=== PATIENT | male | born 1935 | race Caucasian/White ===

== ENCOUNTER 2017-04-10 16:35 | Inpatient (IN) | payer OTHER, BC ==
[~2017-04-10] VITALS: Ht 170.2 cm; Wt 128.8 kg
[2017-04-10] VITALS (7 sets, daily range): BP systolic 102–140; BP diastolic 70–86; PULSE 63–69; TEMP 36.7–36.9; O2SAT 94–98; Ht 170.2 cm; Wt 128.8 kg
[~2017-04-10 16:35] MED LIST: CHOL100010 PO; DOCU100C31 PO; FERR325T51 PO; HMLI SC; INSDGI SC; LEVO100T PO; LEVO150T9 PO; LSX40 PO; MISO200T PO; NRN/300 PO; OXYSR/10 PO; PANT40TA PO; POLY335019 PO; PROP10TA7 PO; SPIR25TA PO
[2017-04-10] MEDS ORDERED: CHOL1TAB76 PO (16:54)
[2017-04-10] MEDS ORDERED: OXYC20TA50 PO (17:01)
[2017-04-10] MEDS ORDERED: INSDGI SC (17:01)
[2017-04-10] MEDS ORDERED: FERR1TAB62 PO (17:01)
[2017-04-10] MEDS ORDERED: INSU100I SQ (17:20)
[2017-04-10 17:41] LABS: HEMATOCRIT 21.4 % (42-52); MEAN CELL VOLUME 89.9 fL (80-100); MEAN CORPUSCULAR HEMOGLOBIN 27.7 pg (25-34); MEAN CORPUSCULAR HGB CONC 30.8 g/dl (32-36); MEAN PLATELET VOLUME 10.2 fL (7.4-10.4); PLATELET COUNT 122 K/uL (130-400); RED BLOOD COUNT 2.38 M/uL (4.7-6.1); WHITE BLOOD COUNT 3.87 K/uL (4.8-10.8)
--- NOTE | 2017-04-10 17:41 | EMERGENCY ROOM VISIT NOTE ---
History Report prepared by Omar: Leidy Bazan Under the Supervision of: Dr. Alex Cabrera M.D. First contact with patient: 16:59 Chief Complaint: WEAKNESS Stated Complaint: WEAK Nursing Triage Summary: triage note: Pt reports for the past several weeks he has had increased weakness and dizziness. pt reports hx of needing blood transfusions. History of Present Illness The patient is a 82 year old male who presents to the Emergency Room with complaints of persistent generalized weakness starting about 4-5 weeks ago. He also complains of dizziness but denies any lightheadedness or syncopal episodes. As per family, the patient looked pale today. He has a history of similar symptoms occurring with anemia and blood transfusions. He also has a history of ulcers. He is on iron pills. He is not on any blood thinners. He had blood work on February 25 which showed his hemoglobin level at 9.7. His hemoglobin level in November 2016 was 10.2 and it was 11 in October 2016. He also complains of shortness of breath with exertion. He denies any fevers, chills, chest pain, blood in vomit, abdominal pain, abdominal distention, bloody stools , or any other complaints. The patient has a history of diabetes, nonalcoholic liver issues, renal insufficiency, gastric varices, thyroid issues. Source of History: patient, family, spouse/significant other Onset: 4-5 weeks ago Position: other (global) Quality: other (generalized weakness) Timing: other (persistent) Associated Symptoms: + SOB, No fevers, No chills, No chest pain, No abdominal pain Review of Systems See HPI for pertinent positives & negatives. A total of 10 systems reviewed and were otherwise negative. Past Medical & Surgical Medical Problems: (1) Anemia (2) Cirrhosis of liver not due to alcohol (3) CKD (chronic kidney disease), stage IV (4) Diabetes mellitus (5) Dyslipidemia (6) GIB (gastrointestinal bleeding) (7) HTN (hypertension) (8) Hypothyroidism (9) ITP (idiopathic thrombocytopenic purpura) (10) MGUS (monoclonal gammopathy of unknown significance) (11) APOLINAR on CPAP (12) PMR (polymyalgia rheumatica) (13) Polymyalgia rheumatica (14) Respiratory distress (15) SOB (shortness of breath) Surgical Problems: (1) History of appendectomy (2) History of tonsillectomy and adenoidectomy (3) History of total right hip replacement Old medical records were reviewed. Nurse's notes were reviewed and I agree with. Family History Patient reports no known family medical history. Social History Smoking Status: Never Smoker Alcohol Use: none Drug Use: none Marital Status: Housing Status: lives with family Occupation Status: retired Current/Historical Medications Scheduled Cholecalciferol (D 1999), 4,000 UNITS PO @LUNCH Ferrous Sulfate (Ferrous Sulfate), 325 MG PO BID Furosemide (Furosemide), 40 MG PO QAM Gabapentin (Neurontin), 300 MG PO QID Insulin Glargine (Lantus), 40 UNITS SC HS Insulin Lispro (Human) (Humalog), 10 UNITS SQ TID Levothyroxine Sodium (Synthroid), 100 MCG PO QAM Levothyroxine Sodium (Levothyroxine Sodium), 150 MCG PO QAM Misoprostol (Cytotec), 200 MCG PO TID Oxycodone Hcl (Oxycontin), 20 MG PO BID Pantoprazole (Protonix), 40 MG PO BID Polyethylene (Miralax), 34 GM PO DAILY Scheduled PRN Docusate Sodium (Docusate Sodium), 100 MG PO BID PRN for Constipation Oxycodone Ir (Roxicodone Ir), 5 MG PO Q6H PRN for Pain Triamcinolone (Triamcinolone Acetonide), 1 APPLN EXT BID PRN for Itching Allergies Coded Allergies: Iodinated Diagnostic Agents (Verified Adverse Reaction, Intermediate, Decreased renal function, 04/10/17) Physical Exam Vital Signs Date Time Temp Pulse Resp B/P (MAP) Pulse Ox O2 Delivery O2 Flow Rate FiO2 04/10/17 17:03 95 Room Air 04/10/17 16:43 36.7 92 20 133/84 99 Room Air Physical Exam General: Chronically ill-appearing, older male, in no acute distress. HEENT: Normal cephalic atraumatic. Pupils are equal round and reactive to light. Sclerae anicteric. Extraocular movements are intact. Oropharynx is pink with moist mucous membranes. No swelling of the mouth lips or tongue. Neck: Supple with a midline trachea. No meningeal signs or stiffness, no JVD or bruits. No Stridor. Chest: Clear to auscultation bilaterally. No wheezes or rhonchi. No increased work of breathing. Heart: regular rate and rhythm. Abdomen: Soft nontender, nondistended without rebound guarding or rigidity. Extremities: No cyanosis clubbing. No calf tenderness or assymetry. 1+ bilateral lower extremity edema which is unchanged. Spine/Back. Non tender to palpation. No CVA tenderness Rectal Exam: Brown stool, non-melanotic but guaiac positive. Skin: Good turgor without rashes. Neurologic exam: Cranial nerves two through 12 are intact. Motor and sensation are intact and symmetrical throughout. Medical Decision & Procedures ER Provider Diagnostic Interpretation: X-ray results as stated below per interpretation by me and the radiologist: CHEST ONE VIEW PORTABLE CLINICAL HISTORY: Chest pain. Weakness. COMPARISON STUDY: Chest radiograph November 19, 2015. FINDINGS: Moderate elevation of the right hemidiaphragm has slightly increased since prior exam. There is no evidence of pulmonary edema. Mild cardiomegaly is noted. Linear bibasilar opacities favor atelectasis. There is no pneumothorax. There are suspected calcified left hilar lymph nodes. IMPRESSION: 1. No acute cardiopulmonary findings. 2. Slight increase in moderate elevation of the right hemidiaphragm. 3. Bibasilar opacities suggestive of atelectasis. Electronically signed by: Jaziel Reyes M.D. 04/10/2017 5:59 PM Dictated Date/Time: 04/10/2017 5:57 PM Laboratory Results 04/10/17 17:18 Red Blood Count 2.38, Mean Corpuscular Volume 89.9, Mean Corpuscular Hemoglobin 27.7, Mean Corpuscular Hemoglobin Concent 30.8, Mean Platelet Volume 10.2, Neutrophils (%) (Auto) 58.9, Lymphocytes (%) (Auto) 24.8, Monocytes (%) (Auto) 9.6, Eosinophils (%) (Auto) 5.4, Basophils (%) (Auto) 1.0, Neutrophils # (Auto) 2.28, Lymphocytes # (Auto) 0.96, Monocytes # (Auto) 0.37, Eosinophils # (Auto) 0.21, Basophils # (Auto) 0.04 04/10/17 17:18 Test 04/10/17 17:18 04/10/17 17:26 White Blood Count 3.87 K/uL (4.8-10.8) Red Blood Count 2.38 M/uL (4.7-6.1) Hemoglobin 6.6 g/dL (14.0-18.0) Hematocrit 21.4 % (42-52) Mean Corpuscular Volume 89.9 fL (80-100) Mean Corpuscular Hemoglobin 27.7 pg (25-34) Mean Corpuscular Hemoglobin Concent 30.8 g/dl (32-36) Platelet Count 122 K/uL (130-400) Mean Platelet Volume 10.2 fL (7.4-10.4) Neutrophils (%) (Auto) 58.9 % Lymphocytes (%) (Auto) 24.8 % Monocytes (%) (Auto) 9.6 % Eosinophils (%) (Auto) 5.4 % Basophils (%) (Auto) 1.0 % Neutrophils # (Auto) 2.28 K/uL (1.4-6.5) Lymphocytes # (Auto) 0.96 K/uL (1.2-3.4) Monocytes # (Auto) 0.37 K/uL (0.11-0.59) Eosinophils # (Auto) 0.21 K/uL (0-0.5) Basophils # (Auto) 0.04 K/uL (0-0.2) RDW Standard Deviation 47.7 fL (36.4-46.3) RDW Coefficient of Variation 14.3 % (11.5-14.5) Immature Granulocyte % (Auto) 0.3 % Immature Granulocyte # (Auto) 0.01 K/uL (0.00-0.02) Anisocytosis PRESENT Prothrombin Time 11.0 SECONDS (9.0-12.0) Prothromb Time International Ratio 1.0 (0.9-1.1) Activated Partial Thromboplast Time 25.9 SECONDS (21.0-31.0) Partial Thromboplastin Ratio 1.0 Anion Gap 4.0 mmol/L (3-11) Est Creatinine Clear Calc Drug Dose 36.4 ml/min Estimated GFR () 33.4 Estimated GFR (Non- 28.9 BUN/Creatinine Ratio 11.7 (10-20) Calcium Level 7.3 mg/dl (8.5-10.1) Total Bilirubin 0.2 mg/dl (0.2-1) Direct Bilirubin 0.1 mg/dl (0-0.2) Aspartate Amino Transf (AST/SGOT) 20 U/L (15-37) Alanine Aminotransferase (ALT/SGPT) 10 U/L (12-78) Alkaline Phosphatase 68 U/L (45-117) Total Creatine Kinase 101 U/L (39-308) Creatine Kinase MB 3.1 ng/ml (0.5-3.6) Creatine Kinase MB Ratio 3.1 (0-3.0) Total Protein 6.0 gm/dl (6.4-8.2) Albumin 2.5 gm/dl (3.4-5.0) Lipase 82 U/L (73-393) Thyroid Stimulating Hormone (TSH) 1.420 uIu/ml (0.300-4.500) Bedside Troponin I < 0.030 ng/ml (0-0.045) KP-Ccu-C-Type Natriuretic Peptide 264 pg/ml (0-1800) Laboratory studies as stated above per my review. Medications Administered ECG Indication: weakness Rate (beats per minute): 72 Rhythm: normal sinus Findings: 1st degree AV block, no acute ischemic change, no ectopy Comparison ECG Date: November 19, 2015 Change: no significant change ED Course 1659: Past medical records reviewed. The patient was evaluated in room B09, and a complete history and physical examination were performed. 1741: The patient's hemoglobin level was 6. 1802: I discussed the patient's case with Dr. Asif, from [facility]. 1804: Upon reevaluation, the patient is resting comfortably. Blood consent was obtained. I discussed the results and treatment plan with the patient. He verbalized agreement of the treatment plan. The patient will be evaluated for further management. 1830: Pantoprazole Sodium 80 mg/Dextrose 120 ml @ 480 mls/hr IV 1845: Pantoprazole Sodium 40 mg/Dextrose 100 ml @ 20 mls/hr IV Medical Decision Differential diagnosis includes but is not limited to anemia, GI bleed, cardiac disease, arrhythmia, infection, thyroid disease. Blood pressure Screening: Patient was found to have an elevated blood pressure and was referred to their primary doctor for recheck and further treatment. Medication Reconciliation: I attest that I have personally reviewed the patient' s current medication list. This patient comes in as described above. He was placed in room B9. He's had increasing weakness over the last 6 weeks. He does have history of anemia and GI bleeding. He's noticed no blood in his stool. He has no abdominal pain or chest pain. He does have some shortness of breath with exertion. He looks well on exam and is non-pale appearing. IV access established and was typed and screened and multiple blood tests was obtained. EKG does not suggest acute coronary syndrome or arrhythmia. Chest x-ray does not show any acute findings. Seem blood was found to be low at 6.6. I did a rectal exam and and the stool appears normal however it was guaiac positive. Based on his symptoms, I I think that he has had a slow GI bleed. He's been hemodynamically stable appears to be compensating well with this. I did consent him for blood transfusion I ordered the first unit to be started. The patient freely consents. He does need to be admitted he was also started on IV Protonix bolus and drip. [facility] will [facility] him for these measures. Consults Time Called: 1755 Consulting Physician: Dr. Asif, from [facility] Returned Call: 1802 I discussed the patient's case with Dr. Asif, from [facility]. Impression Primary Impression: GI bleed Additional Impressions: Anemia Peptic ulcer disease Critical Care Due to the patient's weakness, GI bleed and need for IV medications and transfusion, I have personally spent greater than 30 minutes of critical care time in the direct management of this patient. This includes bedside care, interpretation of diagnostic studies, and testing, discussion with consultants, patient, and family members, and other required patient management activities. This 30 minutes is in excess of all separately billable procedures. Scribe Attestation The scribe's documentation has been prepared under my direction and personally reviewed by me in its entirety. I confirm that the note above accurately reflects all work, treatment, procedures, and medical decision making performed by me. Departure Information Dispostion Being Evaluated By Hospitalist Referrals Buddy Freitas M.D. (PCP) Patient Instructions My [facility] Problem Qualifiers
[2017-04-10 17:46] LABS: POINT OF CARE PRO-BNP 264 pg/ml (0-1800); POINT OF CARE TROPONIN I < 0.030 ng/ml (0-0.045)
[2017-04-10 17:53] LABS: BUN/CREATININE RATIO 11.7 (10-20); CALCIUM 7.3 mg/dl (8.5-10.1); CREATININE 2.1 mg/dl (0.60-1.40); POTASSIUM 4.5 mmol/L (3.5-5.1)
--- NOTE | 2017-04-10 18:00 | DIAGNOSTIC IMAGING REPORT ---
CHEST ONE VIEW PORTABLE CLINICAL HISTORY: Chest pain. Weakness. COMPARISON STUDY: Chest radiograph November 19, 2015. FINDINGS: Moderate elevation of the right hemidiaphragm has slightly increased since prior exam. There is no evidence of pulmonary edema. Mild cardiomegaly is noted. Linear bibasilar opacities favor atelectasis. There is no pneumothorax. There are suspected calcified left hilar lymph nodes. IMPRESSION: 1. No acute cardiopulmonary findings. 2. Slight increase in moderate elevation of the right hemidiaphragm. 3. Bibasilar opacities suggestive of atelectasis. Electronically signed by: Jaziel Reyes M.D. 04/10/2017 5:59 PM Dictated Date/Time: 04/10/2017 5:57 PM
[2017-04-10 18:01] LABS: ANISOCYTOSIS PRESENT; BASO ABS # 0.04 K/uL (0-0.2); COMPLETE YES; EOS % 5.4 %; IG% 0.3 %; LYMPH % 24.8 %; LYMPH ABS # 0.96 K/uL (1.2-3.4); MONO % 9.6 %; NEUT % 58.9 %
[2017-04-10 18:04] LABS: CKMB/CK RATIO 3.1 (0-3.0); THYROID STIMULATING HORMONE 1.42 uIu/ml (0.300-4.500)
[2017-04-10] MEDS ORDERED: PANTOprazole INJ 80 MG in DEXTROSE 5% 100ML IV SCH (18:30)
[2017-04-10] MEDS ORDERED: PANTOprazole INJ 40 MG in DEXTROSE 5% 100ML IV SCH (18:45)
[2017-04-10] MEDS ORDERED: TRML160 EXT (19:00)
[2017-04-10] MEDS ORDERED: ONDANSETRON INJ 2 MG/ML 2 ML VIAL IV PRN (19:00)
[2017-04-10] MEDS ORDERED: MRLP17X PO (19:00)
[2017-04-10] MEDS ORDERED: ACETAMINOPHEN 325 MG TAB PO PRN (19:00)
[2017-04-10] MEDS ORDERED: MISO200T PO (19:00)
[2017-04-10] MEDS ORDERED: OXYC1TAB3 PO (19:00)
[2017-04-10] MEDS ORDERED: GLUCAGON FOR INJ 1 MG VIAL SQ PRN (19:15)
[2017-04-10] MEDS ORDERED: GLUCOSE 40% GEL 15 GM TUBE PO PRN (19:15)
[2017-04-10] MEDS ORDERED: GLUCOSE 10 TABS/TUBE PO PRN (19:15)
[2017-04-10] MEDS ORDERED: DEXTROSE 50% 50 ML SYR IV PRN (19:15)
--- NOTE | 2017-04-10 19:21 | Progress Note ---
Progress Note Date of Service Apr 10, 2017. Progress Note Patient was seen and evaluated with AMANDA Elena. Patient comes in with c/o decreased activity tolerance, SOB- exertional, fatigue x few weeks, HB found to be 6.6 Last one 1.5 months ago around 9. No c/o melena, fresh red blood per stool. Denies any abdominal pain, fever, chills, nausea vomiting, diarrhea. FOBT +ve per ED physician EXAM Gen- AAOX3, no distress; Morbidly obese HEENT- Pallor +, pale Lungs- AEBE decreased, no wheezing Heart- S1, S2 normal Abdomen- soft, non tender, non distended, BS present Ext- right > left pedal edema, chronic ASSESSMENT/PLAN: SYMPTOMATIC ANEMIA WITH CHRONIC GI BLOOD LOSS : Has had multiple EGDs/Colonoscopys in past which shows mild GAVE, persistent gastric ulcers with bx persistently negative for malignancy, rxed with PPI BID, Carafate (couldnt tolerate), increasing dose of Misoprostol, last EGD showed resolution of his ulcer. Has been on procrit, iron with multiple transfusions. Last admission- 11/2016 -PRBCS - 2units -IV Protonix 40 mg BID -H & H monitoring DM- ISS, Accuchecks HTN Stable CKD-4 Baseline : 2.0, now near baseline DVT PROPHYLAXIS SCDS/TEDS. RE: GI bleeding DISPOSITION Admit to med-surg Discussed with daughter, by bedside.
--- NOTE | 2017-04-10 19:35 | History and Physical ---
History & Physical Date & Time of Service: Apr 10, 2017 at 19:03 Chief Complaint: WEAK Primary Care Physician: Buddy Freitas M.D. History of Present Illness Source: patient, clinic records, hospital records This is an 82 y/o male with PMH of MCHUGH cirrhosis, PUD, gastric varices, GAVE, colonic AVMs, DM 2, HTN, AAA, CKD stage IV, hypothyroidism, and other problems listed below who presents to the ED with fatigue. Patient has been hospitalized multiple times (Oct 2015 and Nov 2015) for anemia due to GIB requiring transfusions. Last EGD 08/07/[address] 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 Patient now reports 6 weeks of progressive fatigue, generalized weakness, lightheadedness with standing, dyspnea on exertion. ER labs show pt's Hg has dropped to 6.6 from 9.7 in late February 2017. ER provider's rectal exam showed brown heme positive stool. Patient denies noting any hematochezia or melena at home. Bilat LE edema slightly increased from baseline past 1 week. Denies fevers, chills, cough, dyspnea at rest, chest pain, abdominal pain, nausea, vomiting, diarrhea, constipation, urinary symptoms. Past Medical/Surgical History Medical Problems: (1) Cirrhosis of liver not due to alcohol Status: Chronic (2) CKD (chronic kidney disease), stage IV Status: Chronic (3) Diabetes mellitus Status: Chronic (4) Dyslipidemia Status: Chronic (5) HTN (hypertension) Status: Chronic (6) Hypothyroidism Status: Chronic (7) ITP (idiopathic thrombocytopenic purpura) Status: Chronic (8) MGUS (monoclonal gammopathy of unknown significance) Status: Chronic (9) APOLINAR on CPAP Status: Chronic (10) PMR (polymyalgia rheumatica) Status: Chronic (11) Polymyalgia rheumatica Status: Chronic Surgical Problems: (1) History of appendectomy Status: Chronic (2) History of tonsillectomy and adenoidectomy Status: Chronic (3) History of total right hip replacement Status: Chronic Family History Patient reports no known family medical history. Social History Smoking Status: Never Smoker Alcohol Use: none Drug Use: none Marital Status: Housing status: lives with significant other Occupational Status: retired Immunizations History of Influenza Vaccine: Yes Influenza Vaccine Date: Oct 06, 2015 History of Tetanus Vaccine?: Yes Tetanus Immunization Date: Jun 21, 2006 History of Pneumococcal: Yes Pneumococcal Date: Oct 06, 2015 History of Hepatitis B Vaccine: Unknown Multi-Drug Resistant Organisms History of MDRO: No Allergies Coded Allergies: Iodinated Diagnostic Agents (Verified Adverse Reaction, Intermediate, Decreased renal function, 04/10/17) Home Medications Scheduled Cholecalciferol (D 1999), 4,000 UNITS PO @LUNCH Ferrous Sulfate (Ferrous Sulfate), 325 MG PO BID Furosemide (Furosemide), 40 MG PO QAM Gabapentin (Neurontin), 300 MG PO QID Insulin Glargine (Lantus), 40 UNITS SC HS Insulin Lispro (Human) (Humalog), 10 UNITS SQ TID Levothyroxine Sodium (Synthroid), 100 MCG PO QAM Levothyroxine Sodium (Levothyroxine Sodium), 150 MCG PO QAM Misoprostol (Cytotec), 200 MCG PO TID Oxycodone Hcl (Oxycontin), 20 MG PO BID Pantoprazole (Protonix), 40 MG PO BID Polyethylene (Miralax), 34 GM PO DAILY Scheduled PRN Docusate Sodium (Docusate Sodium), 100 MG PO BID PRN for Constipation Oxycodone Ir (Roxicodone Ir), 5 MG PO Q6H PRN for Pain Triamcinolone (Triamcinolone Acetonide), 1 APPLN EXT BID PRN for Itching Review of Systems Ten systems reviewed and negative except as noted in HPI. Physical Exam Vital Signs Date Time Temp Pulse Resp B/P (MAP) Pulse Ox O2 Delivery O2 Flow Rate FiO2 04/10/17 18:27 68 18 163/85 95 Room Air 04/10/17 17:03 95 Room Air 04/10/17 16:43 36.7 92 20 133/84 99 Room Air General Appearance: WD/WN, + pertinent finding (pleasant alert elderly male, and daughter at bedside) Head: normocephalic, atraumatic Eyes: normal inspection, PERRL, sclerae normal ENT: pharynx normal, + pertinent finding (hard of hearing) Neck: supple, trachea midline Respiratory/Chest: lungs clear, normal breath sounds, no respiratory distress, no accessory muscle use Cardiovascular: regular rate, rhythm, no murmur Abdomen/GI: normal bowel sounds, non tender, soft Extremities/Musculoskelatal: no calf tenderness, + pertinent finding (trace pretibial edema bilat LE) Neurologic/Psych: alert, normal mood/affect, oriented x 3, + pertinent finding (grossly nonfocal) Skin: warm/dry, + pallor Diagnostics Laboratory Results Results Past 24 Hours Test 04/10/17 17:08 04/10/17 17:18 04/10/17 17:26 04/10/17 18:51 Range/Units Creatine Kinase MB Ratio 3.1 0-3.0 White Blood Count 3.87 4.8-10.8 K/uL Red Blood Count 2.38 4.7-6.1 M/uL Hemoglobin 6.6 14.0-18.0 g/dL Hematocrit 21.4 42-52 % Mean Corpuscular Volume 89.9 80-100 fL Mean Corpuscular Hemoglobin 27.7 25-34 pg Mean Corpuscular Hemoglobin Concent 30.8 32-36 g/dl Platelet Count 122 130-400 K/uL Mean Platelet Volume 10.2 7.4-10.4 fL Neutrophils (%) (Auto) 58.9 % Lymphocytes (%) (Auto) 24.8 % Monocytes (%) (Auto) 9.6 % Eosinophils (%) (Auto) 5.4 % Basophils (%) (Auto) 1.0 % Neutrophils # (Auto) 2.28 1.4-6.5 K/uL Lymphocytes # (Auto) 0.96 1.2-3.4 K/uL Monocytes # (Auto) 0.37 0.11-0.59 K/uL Eosinophils # (Auto) 0.21 0-0.5 K/uL Basophils # (Auto) 0.04 0-0.2 K/uL RDW Standard Deviation 47.7 36.4-46.3 fL RDW Coefficient of Variation 14.3 11.5-14.5 % Immature Granulocyte % (Auto) 0.3 % Immature Granulocyte # (Auto) 0.01 0.00-0.02 K/uL Anisocytosis PRESENT Prothrombin Time 11.0 9.0-12.0 SECONDS Prothromb Time International Ratio 1.0 0.9-1.1 Activated Partial Thromboplast Time 25.9 21.0-31.0 SECONDS Partial Thromboplastin Ratio 1.0 Sodium Level 142 136-145 mmol/L Potassium Level 4.5 3.5-5.1 mmol/L Chloride Level 108 98-107 mmol/L Carbon Dioxide Level 30 21-32 mmol/L Anion Gap 4.0 3-11 mmol/L Blood Urea Nitrogen 25 7-18 mg/dl Creatinine 2.10 0.60-1.40 mg/dl Est Creatinine Clear Calc Drug Dose 36.4 ml/min Estimated GFR () 33.4 Estimated GFR (Non- 28.9 BUN/Creatinine Ratio 11.7 10-20 Random Glucose 78 70-99 mg/dl Calcium Level 7.3 8.5-10.1 mg/dl Total Bilirubin 0.2 0.2-1 mg/dl Direct Bilirubin 0.1 0-0.2 mg/dl Aspartate Amino Transf (AST/SGOT) 20 15-37 U/L Alanine Aminotransferase (ALT/SGPT) 10 12-78 U/L Alkaline Phosphatase 68 45-117 U/L Total Creatine Kinase 101 39-308 U/L Creatine Kinase MB 3.1 0.5-3.6 ng/ml Total Protein 6.0 6.4-8.2 gm/dl Albumin 2.5 3.4-5.0 gm/dl Lipase 82 73-393 U/L Thyroid Stimulating Hormone (TSH) 1.420 0.300-4.500 uIu/ml Bedside Troponin I < 0.030 0-0.045 ng/ml [id number] Natriuretic Peptide 264 0-1800 pg/ml Diagnostic Radiology CHEST ONE VIEW PORTABLE CLINICAL HISTORY: Chest pain. Weakness. COMPARISON STUDY: Chest radiograph November 19, 2015. FINDINGS: Moderate elevation of the right hemidiaphragm has slightly increased since prior exam. There is no evidence of pulmonary edema. Mild cardiomegaly is noted. Linear bibasilar opacities favor atelectasis. There is no pneumothorax. There are suspected calcified left hilar lymph nodes. IMPRESSION: 1. No acute cardiopulmonary findings. 2. Slight increase in moderate elevation of the right hemidiaphragm. 3. Bibasilar opacities suggestive of atelectasis. Impression Assessment and Plan SYMPTOMATIC ANEMIA Hg 6.6; was 9.7 in late February 2017; has been treated with Procrit and iron as outpatient Likely due to slow GI bleed possibly upper; ER provider's rectal exam showed brown heme + stool History of PUD, gastric varices, GAVE, colonic AVM's, diverticulosis Last EGD 08/07/[address] 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 Hemodynamically stable IV Protonix BID, continue misoprostol Transfuse 2 units pRBC with 20 mg IV Lasix in between Recheck H/H 2 hours post-transfusion Clear liquid diet- NPO after midnight for possible EGD Consult GI- pt known to Dr. Bateman DM TYPE 2 Last A1c 4.7 on 03/01/17 Continue Lantus at reduced dose Novolog sliding scale coverage BSG AC HS CKD STAGE IV Creat is 2.1- stable from baseline 2.1-2.4 Monitor renal function Avoid nephrotoxins MCHUGH CIRRHOSIS Appears euvolemic, no overt decompensation Will give IV Lasix between transfusions and continue home Lasix dose HYPERTENSION BP is stable Monitor HYPOTHYROIDISM Continue levothyroxine MGUS Continue outpatient follow up APOLINAR Continue CPAP DVT PROPHYLAXIS SCD's CODE STATUS Full code per my discussion with the patient. States he would not want prolonged life support. DISPOSITION Admit to telemetry Follows with Dr. Freitas for primary care Patient seen in collaboration with Dr. Joycelyn Asif. Please see her addendum. VTE Prophylaxis VTE Risk Assessment Done? Y/N: Yes Risk Level: Moderate
[2017-04-10] MEDS ORDERED: DOCUSATE SODIUM 100 MG CAP PO PRN (20:00)
[2017-04-10 20:47] LABS: URINE APPEARANCE CLEAR (CLEAR); URINE BILIRUBIN NEG (NEG); URINE COLOR YELLOW; URINE NITRITE NEG (NEG); URINE SPECIFIC GRAVITY 1.015 (1.000-1.030); UROBILINOGEN NEG (NEG)
[2017-04-10 20:49] LABS: MANUAL MICROSCOPIC REQUIRED? NO; REVIEW REQ? NO
[2017-04-10] MEDS: INSULIN ASPART 100 UNITS/ML 3 ML PEN SC SCH (20:49)
[2017-04-10] MEDS ORDERED: FUROSEMIDE INJ 20 MG in SYRINGE 0 ML IV SCH (21:00)
[2017-04-10] MEDS: PANTOprazole INJ 40 MG in SYRINGE 0 ML IV SCH (21:00)
[2017-04-10] MEDS: MISOPROSTOL 200 MCG TAB PO SCH (21:09)
[2017-04-10] MEDS: FERROUS SULFATE 325 MG TAB PO SCH (21:09)
[2017-04-10] MEDS: GABAPENTIN 300 MG CAP PO SCH (21:10)
[2017-04-10] MEDS: INSULIN GLARGINE SOLOSTAR 100 UNITS/ML 3 ML PEN SC SCH (21:10)
[2017-04-10] MEDS: OXYCODONE HCL 20 MG TABCR (OXYCONTIN) PO SCH (21:14)
[2017-04-11] VITALS (13 sets, daily range): BP systolic 116–162; BP diastolic 76–97; PULSE 61–70; TEMP 36.4–36.8; O2SAT 93–97
[2017-04-11] MEDS: OXYCODONE HCL IR 5 MG TAB (IMMEDIATE RELEASE) PO PRN (03:57)
[2017-04-11 05:16] LABS: HEMATOCRIT 27.5 % (42-52); MEAN CELL VOLUME 88.1 fL (80-100); MEAN CORPUSCULAR HEMOGLOBIN 27.2 pg (25-34); MEAN CORPUSCULAR HGB CONC 30.9 g/dl (32-36); MEAN PLATELET VOLUME 11.5 fL (7.4-10.4); PLATELET COUNT 130 K/uL (130-400); RED BLOOD COUNT 3.12 M/uL (4.7-6.1); WHITE BLOOD COUNT 5.29 K/uL (4.8-10.8)
[2017-04-11 05:25] LABS: BUN/CREATININE RATIO 12.1 (10-20); CALCIUM 7.5 mg/dl (8.5-10.1); CREATININE 2.1 mg/dl (0.60-1.40); POTASSIUM 4.3 mmol/L (3.5-5.1)
[2017-04-11] MEDS: LEVOTHYROXINE 150 MCG TAB PO SCH (06:28)
[2017-04-11] MEDS: INSULIN ASPART 100 UNITS/ML 3 ML PEN SC SCH ×4 (06:28→20:47)
[2017-04-11] MEDS: LEVOTHYROXINE 100 MCG TAB PO SCH (06:28)
--- NOTE | 2017-04-11 07:53 | Gastrointestinal Consultation ---
Gastrointestinal Consultation Date of Consultation: Apr 11, 2017 Attending Physician: Usha Consulting Physician: Shreyas Reason for Consultation: anemia, heme + stools History of Present Illness Patient is a 82 year old male w/ PMH significant for cirrhosis, esophageal varices, AVMs, obesity, DM, MGUS, CKD, GAVE, anemia and history of gastric ulcer who presents through the ED for evaluation of dizziness and weakness x 4 weeks found to be anemic with a HGB of 6.6 --> 2 units --> 8.5. Rectal exam in the ED with heme + brown, formed stool. Pt was seen and evaluated this AM. at bedside. He had clear liquids this morning despite being NPO. He tells me over the past few weeks he has had progressively worsening fatigue, weakness, SOB and dizziness. He denies any overt signs of GI bleeding, however, sometimes he has black stools but he is on PO iron. He typically moves his bowels twice daily - formed stools. His last BM was yesterday morning. No black/sticky stools or BRB. Denies any nausea or vomiting. Denies any upper GI symptoms. Overall he feels tired and weak. Denies any fever, chills, chest pain, abdominal pain. EGD 08/19: There was fullness of the GE junction, although no clear esophageal varices were seen. Gastric varices were seen on retroflexion. There was marked GAVE in the antrum, with deformity and edema of the folds in the gastric antrum , and marked petechiae of the antral mucosa. The previously seen ulcer was not seen.The duodenum was normal. Continue current medication regimen of PPI and cytotec. Colon 10/13/15: The perianal and digital rectal examinations were normal. There were multiple AVMs in the ascending colon. They were large and small, without evidence of bleeding. There was a large AVM that was ablated and clipped x 3; a small AVM that was ablated and clipped x 1; a large AVM that was ablated and clipped x 3; and a small AVM that was ablated and clipped x 1. Diverticulosis in the sigmoid colon. There was no evidence of ongoing or active bleeding Past Medical/Surgical History Medical Problems: (1) Acute renal failure Status: Acute (2) GI bleed Status: Acute (3) GI bleed Status: Acute (4) Peptic ulcer disease Status: Acute (5) Rectal bleeding Status: Acute Past Medical History: cirrhosis, esophageal varices, Polymyalgia rheumatica, HTN, hyperlipidemia, CKD , AAA Past Surgical History: EGD, colonoscopy, hip replacement, tonsillectomy and appendectomy Family History Patient reports no known family medical history. Social History Smoking Status: Never Smoker Alcohol Use: none Drug Use: none Marital Status: Housing Status: lives with family Occupation Status: retired Allergies Coded Allergies: Iodinated Diagnostic Agents (Verified Adverse Reaction, Intermediate, Decreased renal function, 04/10/17) Current Medications Home Meds and Scripts Medications Dose Route/Sig Max Daily Dose Days Date Category Triamcinolone Acetonide (Triamcinolone) 60 Appln/60 Ml Lotn 1 Appln EXT BID PRN 04/10/17 Reported Miralax (Polyethylene) 17 Gm Pow 34 Gm PO DAILY 04/10/17 Reported Roxicodone Ir (Oxycodone HCl) 5 Mg Tab 5 Mg PO Q6H PRN 04/10/17 Reported Humalog (Insulin Lispro (Human)) 100 Unit/Ml Inj 10 Units SQ TID 04/10/17 Reported Oxycontin (Oxycodone Hcl) 20 Mg Tab 20 Mg PO BID 04/10/17 Reported Ferrous Sulfate 325 Mg Tab 325 Mg PO BID 04/10/17 Reported Lantus (Insulin Glargine) 100 Unit/Ml Inj 40 Units SC HS 04/10/17 Reported D 2000 (Cholecalciferol) 2,000 Unit Tab 4,000 Units PO @LUNCH 04/10/17 Reported Cytotec (Misoprostol) 200 Mcg Tab 200 Mcg PO TID 02/29/16 Reported Neurontin (Gabapentin) 300 Mg Cap 300 Mg PO QID 01/05/16 Reported Protonix (Pantoprazole Sodium) 40 Mg Tab 40 Mg PO BID 01/05/16 Reported Furosemide 40 Mg Tab 40 Mg PO QAM 01/05/16 Reported Docusate Sodium 100 Mg Cap 100 Mg PO BID PRN 01/05/16 Reported Levothyroxine Sodium 150 Mcg Tab 150 Mcg PO QAM 10/12/15 Reported Synthroid (Levothyroxine Sodium) 100 Mcg Tab 100 Mcg PO QAM 10/12/15 Reported Review of Systems Constitutional: + weakness, + fatigue, No fever, No chills ENT: No trouble swallowing, No pain on swallowing Respiratory: + shortness of breath, No cough Cardiac: No chest pain, No edema Abdomen: + GI bleeding (heme + stool, black formed stools on iron, no BM since 04/10/17), No pain, No nausea, No vomiting, No diarrhea, No constipation Endo: + fatigue Physical Exam Date Time Temp Pulse Resp B/P (MAP) Pulse Ox O2 Delivery O2 Flow Rate FiO2 04/11/17 04:00 Room Air 04/11/17 04:00 36.8 66 16 146/80 (102) 95 Room Air 04/11/17 01:55 36.8 61 14 123/82 93 04/11/17 01:12 36.7 62 16 144/81 96 04/11/17 00:45 36.8 62 16 136/84 95 04/11/17 00:15 36.8 63 14 127/82 95 04/11/17 00:00 94 Room Air 04/11/17 00:00 36.7 62 16 125/82 94 04/10/17 23:45 36.8 63 16 140/86 94 04/10/17 22:30 36.8 63 18 111/78 95 04/10/17 22:00 36.9 67 16 115/72 98 04/10/17 21:30 36.8 68 16 102/70 94 04/10/17 21:15 36.8 67 16 120/79 96 04/10/17 20:58 36.9 65 16 119/71 96 04/10/17 19:20 36.7 69 18 132/83 96 Room Air 04/10/17 19:20 36.7 69 18 132/83 (99) 96 Room Air 04/10/17 18:27 68 18 163/85 95 Room Air 04/10/17 17:03 95 Room Air 04/10/17 16:43 36.7 92 20 133/84 99 Room Air General Appearance: no apparent distress Eyes: PERRL ENT: + pertinent finding (hard of hearing) Neck: supple Respiratory/Chest: lungs clear, normal breath sounds Cardiovascular: regular rate, rhythm, no gallop, no JVD, no murmur Abdomen: normal bowel sounds, non tender, soft, no organomegaly, no pulsatile mass Neurologic/Psych: alert, normal mood/affect, oriented x 3 Skin: normal color, no jaundice Laboratory Results Last 24 Hours Test 04/10/17 17:08 04/10/17 17:18 04/10/17 17:26 04/10/17 20:23 Creatine Kinase MB Ratio 3.1 White Blood Count 3.87 K/uL Red Blood Count 2.38 M/uL Hemoglobin 6.6 g/dL Hematocrit 21.4 % Mean Corpuscular Volume 89.9 fL Mean Corpuscular Hemoglobin 27.7 pg Mean Corpuscular Hemoglobin Concent 30.8 g/dl Platelet Count 122 K/uL Mean Platelet Volume 10.2 fL Neutrophils (%) (Auto) 58.9 % Lymphocytes (%) (Auto) 24.8 % Monocytes (%) (Auto) 9.6 % Eosinophils (%) (Auto) 5.4 % Basophils (%) (Auto) 1.0 % Neutrophils # (Auto) 2.28 K/uL Lymphocytes # (Auto) 0.96 K/uL Monocytes # (Auto) 0.37 K/uL Eosinophils # (Auto) 0.21 K/uL Basophils # (Auto) 0.04 K/uL RDW Standard Deviation 47.7 fL RDW Coefficient of Variation 14.3 % Immature Granulocyte % (Auto) 0.3 % Immature Granulocyte # (Auto) 0.01 K/uL Anisocytosis PRESENT Prothrombin Time 11.0 SECONDS Prothromb Time International Ratio 1.0 Activated Partial Thromboplast Time 25.9 SECONDS Partial Thromboplastin Ratio 1.0 Sodium Level 142 mmol/L Potassium Level 4.5 mmol/L Chloride Level 108 mmol/L Carbon Dioxide Level 30 mmol/L Anion Gap 4.0 mmol/L Blood Urea Nitrogen 25 mg/dl Creatinine 2.10 mg/dl Est Creatinine Clear Calc Drug Dose 36.4 ml/min Estimated GFR () 33.4 Estimated GFR (Non- 28.9 BUN/Creatinine Ratio 11.7 Random Glucose 78 mg/dl Calcium Level 7.3 mg/dl Total Bilirubin 0.2 mg/dl Direct Bilirubin 0.1 mg/dl Aspartate Amino Transf (AST/SGOT) 20 U/L Alanine Aminotransferase (ALT/SGPT) 10 U/L Alkaline Phosphatase 68 U/L Total Creatine Kinase 101 U/L Creatine Kinase MB 3.1 ng/ml Total Protein 6.0 gm/dl Albumin 2.5 gm/dl Lipase 82 U/L Thyroid Stimulating Hormone (TSH) 1.420 uIu/ml Bedside Troponin I < 0.030 ng/ml [id number] Natriuretic Peptide 264 pg/ml Urine Color YELLOW Urine Appearance CLEAR Urine pH 7.0 Urine Specific [place] 1.015 Urine Protein NEG Urine Glucose (UA) NEG Urine Ketones NEG Urine Occult Blood NEG Urine Nitrite NEG Urine Bilirubin NEG Urine Urobilinogen NEG Urine Leukocyte Esterase MODERATE Urine WBC (Auto) 10-30 /hpf Urine RBC (Auto) 0-4 /hpf Urine Hyaline Casts (Auto) 1-5 /lpf Urine Epithelial Cells (Auto) 5-10 /lpf Urine Bacteria (Auto) 2+ Test 04/10/17 20:45 04/11/17 04:15 04/11/17 06:26 Bedside Glucose 104 mg/dl 84 mg/dl White Blood Count 5.29 K/uL Red Blood Count 3.12 M/uL Hemoglobin 8.5 g/dL Hematocrit 27.5 % Mean Corpuscular Volume 88.1 fL Mean Corpuscular Hemoglobin 27.2 pg Mean Corpuscular Hemoglobin Concent 30.9 g/dl RDW Standard Deviation 48.9 fL RDW Coefficient of Variation 15.1 % Platelet Count 130 K/uL Mean Platelet Volume 11.5 fL Sodium Level 141 mmol/L Potassium Level 4.3 mmol/L Chloride Level 106 mmol/L Carbon Dioxide Level 28 mmol/L Anion Gap 7.0 mmol/L Blood Urea Nitrogen 25 mg/dl Creatinine 2.10 mg/dl Est Creatinine Clear Calc Drug Dose 34.4 ml/min Estimated GFR () 33.4 Estimated GFR (Non- 28.9 BUN/Creatinine Ratio 12.1 Random Glucose 92 mg/dl Calcium Level 7.5 mg/dl Impression Patient is a 82 year old male with presumed cirrhosis with EGD in 2015 and Colonoscopy in 2014 with evidence of GAVE, AVMs, gastric varices and diverticula who has intermittent black, formed stool as an outpatient who presented for weakness, dizziness and SOB found to have a HGB of 6.6 dropped from 9.7 in February. Stool in ED was brown but heme + without any evidence of active acute GI bleeding. Anemia and heme + stool likely secondary to slow, chronic bleeding from AVM and GAVE. Plan Monitor stools for s/s of GI blood loss Trend H&H Transfuse as needed w/ lasix between units PPI BID Cytotec TID No NSAIDs Outpatient lasix dosing as no signs of fluid overload Clear liquids No plan for EGD/Colonoscopy at this time as there are no signs of acute GI bleeding and procedures. We will follow Mr. Onofre clinically and offer interventions if needed. I performed a history and physical examination of the patient. I have discussed the patient's case, impression and plan with Patito VELARDE. Her note reflects my findings and plan. He should have his H/H checked every 3-4 weeks to "stay ahead" of his anemia. Sudeep Pritchett MD
[2017-04-11] MEDS: FERROUS SULFATE 325 MG TAB PO SCH ×2 (07:58→20:38)
[2017-04-11] MEDS: GABAPENTIN 300 MG CAP PO SCH ×4 (07:58→20:38)
[2017-04-11] MEDS: OXYCODONE HCL 20 MG TABCR (OXYCONTIN) PO SCH ×2 (07:58→20:38)
[2017-04-11] MEDS: POLYETHYLENE (MIRALAX) 17 GM PACK PO SCH (07:59)
[2017-04-11] MEDS: MISOPROSTOL 200 MCG TAB PO SCH ×3 (07:59→20:39)
[2017-04-11] MEDS: PANTOprazole INJ 40 MG in SYRINGE 0 ML IV SCH ×2 (07:59→20:38)
[2017-04-11] MEDS: FUROSEMIDE 40 MG TAB PO SCH (07:59)
--- NOTE | 2017-04-11 08:03 | Clinical Documentation Query ---
CLINICAL DOCUMENTATION QUERY Dr. DRUMMOND, In your clinical opinion is this patient being managed for: ( x ) morbid obesity with BMI of 44.4 ( ) Other explanation of clinical findings (Please Explain) ( ) Unable to determine (Please Define) ( ) Need to Discuss ( ) Not Agree BMI: A significantly high (>40) BMI will impact the severity of illness and risk of mortality of your patient. However, the physician must document a correlating diagnosis in the medical record. Please clarify and document your clinical opinion in the progress notes and discharge summary. Terms such as "probable", "suspected", "likely", "questionable", "possible", or "still to be ruled out" are acceptable. IF IN AGREEMENT, YOU MUST DOCUMENT ABOVE DIAGNOSTIC STATEMENT IN DAILY PROGRESS NOTES AND DISCHARGE SUMMARY. This document is not part of the patient's record. Thank You, Sarah Avendano, ALYCIA [phone]
--- NOTE | 2017-04-11 12:47 | Progress Note ---
Internal Med Progress Note Date of Service: Apr 11, 2017. Provider Documentation: SUBJECTIVE: Seen and examined at bedside. Patient states weakness is better. Had BM today, denies Bloody stools, melena. Also denies any chest pain, SOB. States having burning sensation with micturition. Denies fever, chills. Family at bedside. Offers no other complaints. OBJECTIVE: Vital Signs-as noted below Physical Exam: Vitals signs as noted above General Appearance:Moderately built and nourished, no apparent distress Head: normocephalic, Atraumatic Eyes: normal inspection, EOMI, PERRL Neck: supple, Trachea midline Respiratory/Chest: Normal breath sounds, CTA Cardiovascular: S1, S2, No murmur Abdomen/GI:Soft, Non tender, Bowel sounds present, protuberant Extremities/Musculoskelatal:normal inspection, Trace edema Neurologic/Psych:AAOX3, grossly no focal neurological deficits Skin: normal color, warm Lab data as noted below. 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 Presented with Hb 6.6 S/P 2 units PRBCs Continue IV Protonix, misoprostol Transfuse PRN Monitor Hb Appreciate GI input No plan for EGD/colonoscopy Currently no active bleeding Avoid NSAIDs PPI BID UTI: Reports burning micturition H/O recurrent UTIs Urine Culture:Enterococcus Start IV ceftriaxone DM II Last A1c 4.7 on 03/01/17 Continue Lantus at reduced dose Novolog sliding scale coverage BSG AC HS CKD IV Creat is 2.1- stable from baseline 2.1-2.4 Monitor renal function Avoid nephrotoxins MCHUGH CIRRHOSIS Appears euvolemic, no overt decompensation continue home Lasix dose HYPERTENSION stable Monitor HYPOTHYROIDISM Continue levothyroxine MGUS Continue outpatient follow up APOLINAR Continue CPAP Morbid Obesity: BMI:44.4 DVT PX SCD's CODE STATUS Full code DISPOSITION Monitor in Tele Follows with Dr. Freitas for primary care Vital Signs: Date Time Temp Pulse Resp B/P (MAP) Pulse Ox O2 Delivery O2 Flow Rate FiO2 04/11/17 12:44 36.4 64 18 146/77 (100) 97 Room Air 04/11/17 12:00 97 Room Air 04/11/17 08:00 97 Room Air 04/11/17 07:54 36.5 63 18 130/77 (94) 96 Room Air 04/11/17 04:00 Room Air 04/11/17 04:00 36.8 66 16 146/80 (102) 95 Room Air 04/11/17 01:55 36.8 61 14 123/82 93 04/11/17 01:12 36.7 62 16 144/81 96 04/11/17 00:45 36.8 62 16 136/84 95 04/11/17 00:15 36.8 63 14 127/82 95 04/11/17 00:00 94 Room Air 04/11/17 00:00 36.7 62 16 125/82 94 04/10/17 23:45 36.8 63 16 140/86 94 04/10/17 22:30 36.8 63 18 111/78 95 04/10/17 22:00 36.9 67 16 115/72 98 04/10/17 21:30 36.8 68 16 102/70 94 04/10/17 21:15 36.8 67 16 120/79 96 04/10/17 20:58 36.9 65 16 119/71 96 04/10/17 19:20 36.7 69 18 132/83 96 Room Air 04/10/17 19:20 36.7 69 18 132/83 (99) 96 Room Air 04/10/17 18:27 68 18 163/85 95 Room Air 04/10/17 17:03 95 Room Air 04/10/17 16:43 36.7 92 20 133/84 99 Room Air Lab Results: Results Past 24 Hours Test 04/10/17 17:08 04/10/17 17:18 04/10/17 17:26 04/10/17 20:23 Range/Units Creatine Kinase MB Ratio 3.1 0-3.0 White Blood Count 3.87 4.8-10.8 K/uL Red Blood Count 2.38 4.7-6.1 M/uL Hemoglobin 6.6 14.0-18.0 g/dL Hematocrit 21.4 42-52 % Mean Corpuscular Volume 89.9 80-100 fL Mean Corpuscular Hemoglobin 27.7 25-34 pg Mean Corpuscular Hemoglobin Concent 30.8 32-36 g/dl Platelet Count 122 130-400 K/uL Mean Platelet Volume 10.2 7.4-10.4 fL Neutrophils (%) (Auto) 58.9 % Lymphocytes (%) (Auto) 24.8 % Monocytes (%) (Auto) 9.6 % Eosinophils (%) (Auto) 5.4 % Basophils (%) (Auto) 1.0 % Neutrophils # (Auto) 2.28 1.4-6.5 K/uL Lymphocytes # (Auto) 0.96 1.2-3.4 K/uL Monocytes # (Auto) 0.37 0.11-0.59 K/uL Eosinophils # (Auto) 0.21 0-0.5 K/uL Basophils # (Auto) 0.04 0-0.2 K/uL RDW Standard Deviation 47.7 36.4-46.3 fL RDW Coefficient of Variation 14.3 11.5-14.5 % Immature Granulocyte % (Auto) 0.3 % Immature Granulocyte # (Auto) 0.01 0.00-0.02 K/uL Anisocytosis PRESENT Prothrombin Time 11.0 9.0-12.0 SECONDS Prothromb Time International Ratio 1.0 0.9-1.1 Activated Partial Thromboplast Time 25.9 21.0-31.0 SECONDS Partial Thromboplastin Ratio 1.0 Sodium Level 142 136-145 mmol/L Potassium Level 4.5 3.5-5.1 mmol/L Chloride Level 108 98-107 mmol/L Carbon Dioxide Level 30 21-32 mmol/L Anion Gap 4.0 3-11 mmol/L Blood Urea Nitrogen 25 7-18 mg/dl Creatinine 2.10 0.60-1.40 mg/dl Est Creatinine Clear Calc Drug Dose 36.4 ml/min Estimated GFR () 33.4 Estimated GFR (Non- 28.9 BUN/Creatinine Ratio 11.7 10-20 Random Glucose 78 70-99 mg/dl Calcium Level 7.3 8.5-10.1 mg/dl Total Bilirubin 0.2 0.2-1 mg/dl Direct Bilirubin 0.1 0-0.2 mg/dl Aspartate Amino Transf (AST/SGOT) 20 15-37 U/L Alanine Aminotransferase (ALT/SGPT) 10 12-78 U/L Alkaline Phosphatase 68 45-117 U/L Total Creatine Kinase 101 39-308 U/L Creatine Kinase MB 3.1 0.5-3.6 ng/ml Total Protein 6.0 6.4-8.2 gm/dl Albumin 2.5 3.4-5.0 gm/dl Lipase 82 73-393 U/L Thyroid Stimulating Hormone (TSH) 1.420 0.300-4.500 uIu/ml Bedside Troponin I < 0.030 0-0.045 ng/ml [id number] Natriuretic Peptide 264 0-1800 pg/ml Urine Color YELLOW Urine Appearance CLEAR CLEAR Urine pH 7.0 4.5-7.5 Urine Specific [place] 1.015 1.000-1.030 Urine Protein NEG NEG Urine Glucose (UA) NEG NEG Urine Ketones NEG NEG Urine Occult Blood NEG NEG Urine Nitrite NEG NEG Urine Bilirubin NEG NEG Urine Urobilinogen NEG NEG Urine Leukocyte Esterase MODERATE NEG Urine WBC (Auto) 10-30 0-5 /hpf Urine RBC (Auto) 0-4 0-4 /hpf Urine Hyaline Casts (Auto) 1-5 0-5 /lpf Urine Epithelial Cells (Auto) 5-10 0-5 /lpf Urine Bacteria (Auto) 2+ NEG Test 04/10/17 20:45 04/11/17 04:15 04/11/17 06:26 Range/Units Bedside Glucose 104 84 70-99 mg/dl White Blood Count 5.29 4.8-10.8 K/uL Red Blood Count 3.12 4.7-6.1 M/uL Hemoglobin 8.5 14.0-18.0 g/dL Hematocrit 27.5 42-52 % Mean Corpuscular Volume 88.1 80-100 fL Mean Corpuscular Hemoglobin 27.2 25-34 pg Mean Corpuscular Hemoglobin Concent 30.9 32-36 g/dl RDW Standard Deviation 48.9 36.4-46.3 fL RDW Coefficient of Variation 15.1 11.5-14.5 % Platelet Count 130 130-400 K/uL Mean Platelet Volume 11.5 7.4-10.4 fL Sodium Level 141 136-145 mmol/L Potassium Level 4.3 3.5-5.1 mmol/L Chloride Level 106 98-107 mmol/L Carbon Dioxide Level 28 21-32 mmol/L Anion Gap 7.0 3-11 mmol/L Blood Urea Nitrogen 25 7-18 mg/dl Creatinine 2.10 0.60-1.40 mg/dl Est Creatinine Clear Calc Drug Dose 34.4 ml/min Estimated GFR () 33.4 Estimated GFR (Non- 28.9 BUN/Creatinine Ratio 12.1 10-20 Random Glucose 92 70-99 mg/dl Calcium Level 7.5 8.5-10.1 mg/dl Microbiology Results 04/10/17 Urine Culture - Preliminary, Resulted Enterococcus Species
[2017-04-11] MEDS: CHOLECALCIFEROL 1000 INTER.UNIT TAB PO SCH (13:06)
[2017-04-11] MEDS ORDERED: CEFTRIAXONE SOD INJ 1 GM in DEXTROSE 5% ADD-VANTAGE 50ML 50 ML IV SCH (13:30)
--- NOTE | 2017-04-11 15:16 | Progress Note ---
Progress Note Date of Service Apr 11, 2017. (Patito Stewart ., PRACHI) Progress Note Will keep NPO after midnight in event EGD is needed 04/12/17. (Patito Stewart ., PRACHI)
[2017-04-11 20:16] LABS: HEMATOCRIT 26.6 % (42-52)
[2017-04-11] MEDS: INSULIN GLARGINE SOLOSTAR 100 UNITS/ML 3 ML PEN SC SCH (20:47)
[2017-04-12] VITALS (10 sets, daily range): BP systolic 106–167; BP diastolic 67–95; PULSE 61–77; TEMP 36.3–36.7; O2SAT 95–99
[2017-04-12] MEDS: LEVOTHYROXINE 100 MCG TAB PO SCH (06:14)
[2017-04-12] MEDS: LEVOTHYROXINE 150 MCG TAB PO SCH (06:14)
[2017-04-12 07:03] LABS: BUN/CREATININE RATIO 11.3 (10-20); CALCIUM 7.4 mg/dl (8.5-10.1); CREATININE 2.1 mg/dl (0.60-1.40); POTASSIUM 4.1 mmol/L (3.5-5.1)
[2017-04-12 07:05] LABS: HEMATOCRIT 26.4 % (42-52); MEAN CELL VOLUME 87.1 fL (80-100); MEAN CORPUSCULAR HEMOGLOBIN 26.7 pg (25-34); MEAN CORPUSCULAR HGB CONC 30.7 g/dl (32-36); RED BLOOD COUNT 3.03 M/uL (4.7-6.1); WHITE BLOOD COUNT 4.72 K/uL (4.8-10.8)
[2017-04-12 07:30] LABS: BASO % 0.8 %; BASO ABS # 0.04 K/uL (0-0.2); COMPLETE YES; EOS % 7.4 %; IG% 0.2 %; LYMPH % 20.1 %; LYMPH ABS # 0.95 K/uL (1.2-3.4); MEAN PLATELET VOLUME 11.4 fL (7.4-10.4); MONO % 14.2 %; NEUT % 57.3 %; OVALOCYTES 1+; PLATELET COUNT 96 K/uL (130-400); PLT ESTIMATE DECREASED
[2017-04-12] MEDS: INSULIN ASPART 100 UNITS/ML 3 ML PEN SC SCH ×4 (07:33→21:00)
[2017-04-12] MEDS: PANTOprazole INJ 40 MG in SYRINGE 0 ML IV SCH ×2 (07:34→21:02)
--- NOTE | 2017-04-12 08:21 | Gastroenterology Progress Note ---
Progress Note Date of Service: Apr 12, 2017 Subjective Pt evaluation today including: conversation w/ patient, physical exam, chart review Pt was seen and examined this AM. He is not agreeable to an EGD as he is not having any black/bloody stools or upper GI symptoms. HGB this AM 8.1. Denies fever, chills, chest pain, SOB, lightheadedness or dizziness. Review of Systems Constitutional: No fever, No chills Respiratory: No cough, No shortness of breath Cardiac: No chest pain, No edema Abdomen: No pain, No nausea, No vomiting, No diarrhea, No constipation, No GI bleeding Medications Current Inpatient Medications Medications (Trade) Dose Ordered Sig/Hany Route Start Time Stop Time Status Last Admin Dose Admin Acetaminophen (Tylenol Tab) 650 mg Q4H PRN PO 04/10/17 19:00 05/10/17 18:59 Ondansetron HCl (Zofran Inj) 4 mg Q6H PRN IV 04/10/17 19:00 05/10/17 18:59 Pantoprazole Sodium 40 mg/ Syringe 10 ml @ 5 mls/min DAILY@ IV 04/10/17 21:00 05/10/17 20:59 04/12/17 07:34 5 MLS/MIN Docusate Sodium (coLACE CAP) 100 mg BID PRN PO 04/10/17 20:00 05/10/17 19:59 Furosemide (Lasix Tab) 40 mg QAM PO 04/11/17 09:00 05/11/17 08:59 04/11/17 07:59 40 MG Gabapentin (Neurontin Cap) 300 mg QID PO 04/10/17 21:00 05/10/17 20:59 04/11/17 20:38 300 MG Insulin Glargine (Lantus Solostar Pen) 20 unit HS SC 04/10/17 21:00 05/10/17 20:59 04/11/17 20:47 20 UNIT Levothyroxine Sodium (Synthroid Tab) 150 mcg DAILYBB PO 04/11/17 06:00 05/11/17 05:59 04/12/17 06:14 150 MCG Levothyroxine Sodium (Synthroid Tab) 100 mcg DAILYBB PO 04/11/17 06:00 05/11/17 05:59 04/12/17 06:14 100 MCG Misoprostol (Cytotec Tab) 200 mcg TID PO 04/10/17 21:00 05/10/17 20:59 04/11/17 20:39 200 MCG Oxycodone HCl (Oxycontin Tab) 20 mg BID PO 04/10/17 21:00 04/24/17 20:59 04/11/17 20:38 20 MG Oxycodone HCl (Roxicodone Immediate Rel Tab) 5 mg Q6H PRN PO 04/10/17 19:00 04/24/17 18:59 04/11/17 03:57 5 MG Polyethylene (Miralax Powder Packet) 34 gm DAILY PO 04/11/17 09:00 05/11/17 08:59 Cholecalciferol (Vitamin D Tab) 4,000 inter.unit QDL PO 04/11/17 11:30 05/11/17 11:29 04/11/17 13:06 4,000 INTER.UNIT Ferrous Sulfate (Feosol Tab) 325 mg BID PO 04/10/17 21:00 05/10/17 20:59 04/11/17 20:38 325 MG Miscellaneous Information (Order Awaiting Action) 1 ea QS N/A 04/11/17 00:00 05/11/17 00:00 04/11/17 00:16 1 EA Insulin Aspart (novoLOG ASPART) SLIDING SCALE If C... ACHS SC 04/10/17 21:00 05/10/17 20:59 04/11/17 17:09 2 UNITS Glucose (Glucose 40% Gel) 15-30 GRAMS 15 GRAMS... UD PRN PO 04/10/17 19:15 05/10/17 19:14 Glucose (Glucose Chew Tab) 4-8 Tablets 4 Tabl... UD PRN PO 04/10/17 19:15 05/10/17 19:14 Dextrose (Dextrose 50% 50ML Syringe) 25-50ML OF 50% DW IV FOR... UD PRN IV 04/10/17 19:15 05/10/17 19:14 Glucagon (Glucagon Inj) 1 mg UD PRN SQ 04/10/17 19:15 05/10/17 19:14 Ceftriaxone Sodium 1 gm/ Dextrose 50 ml @ 100 mls/hr Q24H IV 04/11/17 13:30 04/21/17 13:29 04/11/17 14:06 100 MLS/HR Objective Vital Signs Date Time Temp Pulse Resp B/P (MAP) Pulse Ox O2 Delivery O2 Flow Rate FiO2 04/12/17 07:46 36.6 67 20 143/88 (106) 97 Room Air 04/12/17 04:15 36.7 61 18 143/87 (105) 99 Room Air 04/12/17 04:00 99 Room Air 04/12/17 00:00 95 Room Air 04/11/17 23:55 36.8 70 18 162/97 (118) 95 Room Air 04/11/17 20:01 36.6 66 18 148/83 (104) 97 Room Air 04/11/17 20:00 Room Air 04/11/17 16:00 Room Air 04/11/17 15:30 36.6 61 18 116/76 (89) 96 Room Air 04/11/17 12:44 36.4 64 18 146/77 (100) 97 Room Air 04/11/17 12:00 97 Room Air Physical Exam General Appearance: no apparent distress Eyes: PERRL ENT: TMs normal Neck: supple Respiratory/Chest: lungs clear Cardiovascular: regular rate, rhythm Abdomen: normal bowel sounds, non tender, soft, no organomegaly Neurologic/Psych: alert, normal mood/affect, oriented x 3 Skin: normal color Laboratory Results Last 24 Hours Test 04/11/17 11:36 04/11/17 16:45 04/11/17 20:10 04/11/17 20:41 Bedside Glucose 145 mg/dl 86 mg/dl 117 mg/dl Hemoglobin 8.3 g/dL Hematocrit 26.6 % Test 04/12/17 06:14 04/12/17 06:52 White Blood Count 4.72 K/uL Red Blood Count 3.03 M/uL Hemoglobin 8.1 g/dL Hematocrit 26.4 % Mean Corpuscular Volume 87.1 fL Mean Corpuscular Hemoglobin 26.7 pg Mean Corpuscular Hemoglobin Concent 30.7 g/dl Platelet Count 96 K/uL Mean Platelet Volume 11.4 fL Neutrophils (%) (Auto) 57.3 % Lymphocytes (%) (Auto) 20.1 % Monocytes (%) (Auto) 14.2 % Eosinophils (%) (Auto) 7.4 % Basophils (%) (Auto) 0.8 % Neutrophils # (Auto) 2.70 K/uL Lymphocytes # (Auto) 0.95 K/uL Monocytes # (Auto) 0.67 K/uL Eosinophils # (Auto) 0.35 K/uL Basophils # (Auto) 0.04 K/uL RDW Standard Deviation 48.0 fL RDW Coefficient of Variation 14.9 % Immature Granulocyte % (Auto) 0.2 % Immature Granulocyte # (Auto) 0.01 K/uL Platelet Estimate DECREASED Ovalocytes 1+ Sodium Level 141 mmol/L Potassium Level 4.1 mmol/L Chloride Level 105 mmol/L Carbon Dioxide Level 28 mmol/L Anion Gap 8.0 mmol/L Blood Urea Nitrogen 24 mg/dl Creatinine 2.10 mg/dl Est Creatinine Clear Calc Drug Dose 36.2 ml/min Estimated GFR () 33.4 Estimated GFR (Non- 28.9 BUN/Creatinine Ratio 11.3 Random Glucose 94 mg/dl Calcium Level 7.4 mg/dl Bedside Glucose 105 mg/dl Assessment and Plan Patient is a 82 year old male with presumed cirrhosis with EGD in 2015 and Colonoscopy in 2014 with evidence of GAVE, AVMs, gastric varices and diverticula who has intermittent black, formed stool as an outpatient who presented for weakness, dizziness and SOB found to have a HGB of 6.6 dropped from 9.7 in February. Stool in ED was brown but heme + without any evidence of active acute GI bleeding. Anemia and heme + stool likely secondary to slow, chronic bleeding from AVM and GAVE. Monitor stools for s/s of GI blood loss Trend H&H Transfuse as needed w/ lasix between units PPI BID Cytotec TID No NSAIDs Outpatient lasix dosing as no signs of fluid overload No plan for inpatient EGD/Colonoscopy at this time as there are no signs of acute GI bleeding and procedures. I have seen, examined and agree with the plan as outlined by PRACHI Ho as above. -exam reveals soft abd -Discussed and encouraged EGD, but patient denied -Follow symptoms, if has mikaela bleeding re-consider EGD
--- NOTE | 2017-04-12 09:12 | Progress Note ---
Internal Med Progress Note Date of Service: Apr 12, 2017. Provider Documentation: SUBJECTIVE: Seen and examined at bedside. States feeling well. Denies black/bloody stools. Also denies any chest pain, SOB, fever, chills. OBJECTIVE: Vital Signs-as noted below Physical Exam: Vitals signs as noted above General Appearance:Moderately built and nourished, no apparent distress Head: normocephalic, Atraumatic Eyes: normal inspection, EOMI, PERRL Neck: supple, Trachea midline Respiratory/Chest: Normal breath sounds, CTA Cardiovascular: S1, S2, No murmur Abdomen/GI:Soft, Non tender, Bowel sounds present, protuberant Extremities/Musculoskelatal:normal inspection, Trace edema Neurologic/Psych:AAOX3, grossly no focal neurological deficits Skin: normal color, warm Lab data as noted below. 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 Presented with Hb 6.6 S/P 2 units PRBCs Hb:8.1 today Continue IV Protonix BID, misoprostol Transfuse PRN Monitor Hb Appreciate GI input No plan for EGD/colonoscopy Currently no active bleeding Avoid NSAIDs UTI: Reports burning micturition H/O recurrent UTIs Urine Culture:Enterococcus Will change to Vancomycin based on previous sensitivities DM II Last A1c 4.7 on 03/01/17 Continue Lantus at reduced dose Novolog sliding scale coverage BSG AC HS CKD IV Cr Stable: baseline 2.1-2.4 Monitor renal function Avoid nephrotoxins MCHUGH CIRRHOSIS Appears euvolemic, no overt decompensation continue home Lasix dose HYPERTENSION stable Monitor HYPOTHYROIDISM Continue levothyroxine MGUS Continue outpatient follow up APOLINAR Continue CPAP Morbid Obesity: BMI:44.4 DVT PX SCD's CODE STATUS Full code DISPOSITION Transfer to medical floor Follows with Dr. Freitas for primary care Vital Signs: Date Time Temp Pulse Resp B/P (MAP) Pulse Ox O2 Delivery O2 Flow Rate FiO2 04/12/17 08:00 98 Room Air 04/12/17 07:46 36.6 67 20 143/88 (106) 97 Room Air 04/12/17 04:15 36.7 61 18 143/87 (105) 99 Room Air 04/12/17 04:00 99 Room Air 04/12/17 00:00 95 Room Air 04/11/17 23:55 36.8 70 18 162/97 (118) 95 Room Air 04/11/17 20:01 36.6 66 18 148/83 (104) 97 Room Air 04/11/17 20:00 Room Air 04/11/17 16:00 Room Air 04/11/17 15:30 36.6 61 18 116/76 (89) 96 Room Air 04/11/17 12:44 36.4 64 18 146/77 (100) 97 Room Air 04/11/17 12:00 97 Room Air Lab Results: Results Past 24 Hours Test 04/11/17 11:36 04/11/17 16:45 04/11/17 20:10 04/11/17 20:41 Range/Units Bedside Glucose 145 86 117 70-99 mg/dl Hemoglobin 8.3 14.0-18.0 g/dL Hematocrit 26.6 42-52 % Test 04/12/17 06:14 04/12/17 06:52 Range/Units White Blood Count 4.72 4.8-10.8 K/uL Red Blood Count 3.03 4.7-6.1 M/uL Hemoglobin 8.1 14.0-18.0 g/dL Hematocrit 26.4 42-52 % Mean Corpuscular Volume 87.1 80-100 fL Mean Corpuscular Hemoglobin 26.7 25-34 pg Mean Corpuscular Hemoglobin Concent 30.7 32-36 g/dl Platelet Count 96 130-400 K/uL Mean Platelet Volume 11.4 7.4-10.4 fL Neutrophils (%) (Auto) 57.3 % Lymphocytes (%) (Auto) 20.1 % Monocytes (%) (Auto) 14.2 % Eosinophils (%) (Auto) 7.4 % Basophils (%) (Auto) 0.8 % Neutrophils # (Auto) 2.70 1.4-6.5 K/uL Lymphocytes # (Auto) 0.95 1.2-3.4 K/uL Monocytes # (Auto) 0.67 0.11-0.59 K/uL Eosinophils # (Auto) 0.35 0-0.5 K/uL Basophils # (Auto) 0.04 0-0.2 K/uL RDW Standard Deviation 48.0 36.4-46.3 fL RDW Coefficient of Variation 14.9 11.5-14.5 % Immature Granulocyte % (Auto) 0.2 % Immature Granulocyte # (Auto) 0.01 0.00-0.02 K/uL Platelet Estimate DECREASED Ovalocytes 1+ Sodium Level 141 136-145 mmol/L Potassium Level 4.1 3.5-5.1 mmol/L Chloride Level 105 98-107 mmol/L Carbon Dioxide Level 28 21-32 mmol/L Anion Gap 8.0 3-11 mmol/L Blood Urea Nitrogen 24 7-18 mg/dl Creatinine 2.10 0.60-1.40 mg/dl Est Creatinine Clear Calc Drug Dose 36.2 ml/min Estimated GFR () 33.4 Estimated GFR (Non- 28.9 BUN/Creatinine Ratio 11.3 10-20 Random Glucose 94 70-99 mg/dl Calcium Level 7.4 8.5-10.1 mg/dl Bedside Glucose 105 70-99 mg/dl
[2017-04-12] MEDS: FERROUS SULFATE 325 MG TAB PO SCH ×2 (09:30→21:02)
[2017-04-12] MEDS: GABAPENTIN 300 MG CAP PO SCH ×4 (09:30→21:02)
[2017-04-12] MEDS: POLYETHYLENE (MIRALAX) 17 GM PACK PO SCH (09:30)
[2017-04-12] MEDS: FUROSEMIDE 40 MG TAB PO SCH (09:30)
[2017-04-12] MEDS: OXYCODONE HCL 20 MG TABCR (OXYCONTIN) PO SCH ×2 (09:30→21:20)
[2017-04-12] MEDS: MISOPROSTOL 200 MCG TAB PO SCH ×3 (09:30→21:03)
[2017-04-12] MEDS ORDERED: VANCOMYCIN CONSULT ACTIVE PRN (10:30)
[2017-04-12] MEDS ORDERED: VANCOMYCIN INJ 2,700 MG in SODIUM CHLORIDE 0.9% 500ML 500 ML IV ONE (11:00)
[2017-04-12] MEDS: CHOLECALCIFEROL 1000 INTER.UNIT TAB PO SCH (11:28)
--- NOTE | 2017-04-12 13:02 | Pharmacy Progress Note ---
Pharmacy Abx Initial Consult Date of Service Apr 12, 2017. Pharmacy Dosing Scope Date of Consult: 04/12/17 Consultation requested by: Dr. Kerr Pharmacy is consulted to initiate Vancomycin IV dosing therapy, order appropriate labs and adjust drug dose/frequency. Subjective The patient is a 82 year old male admitted on Apr 10, 2017 at 18:08. Objective Height (Feet): 5 Height (Inches): 7.00 Weight (Kilograms): 128.800 Vital Signs (Past 12Hrs) Vital Signs Past 12 Hours Date Time Temp Pulse Resp B/P (MAP) Pulse Ox O2 Delivery O2 Flow Rate FiO2 04/12/17 10:45 36.7 77 20 167/95 (119) 95 Room Air 04/12/17 10:26 36.6 67 20 98 04/12/17 08:00 98 Room Air 04/12/17 07:46 36.6 67 20 143/88 (106) 97 Room Air 04/12/17 04:15 36.7 61 18 143/87 (105) 99 Room Air 04/12/17 04:00 99 Room Air Lab Results (24Hrs) Laboratory Tests (24 Hours) Test 04/12/17 06:14 White Blood Count 4.72 K/uL (4.8-10.8) L Red Blood Count 3.03 M/uL (4.7-6.1) L Hemoglobin 8.1 g/dL (14.0-18.0) L Hematocrit 26.4 % (42-52) L Mean Corpuscular Volume 87.1 fL (80-100) Mean Corpuscular Hemoglobin 26.7 pg (25-34) Mean Corpuscular Hemoglobin Concent 30.7 g/dl (32-36) L Platelet Count 96 K/uL (130-400) L Mean Platelet Volume 11.4 fL (7.4-10.4) H Neutrophils (%) (Auto) 57.3 % Lymphocytes (%) (Auto) 20.1 % Monocytes (%) (Auto) 14.2 % Eosinophils (%) (Auto) 7.4 % Basophils (%) (Auto) 0.8 % Neutrophils # (Auto) 2.70 K/uL (1.4-6.5) Lymphocytes # (Auto) 0.95 K/uL (1.2-3.4) L Monocytes # (Auto) 0.67 K/uL (0.11-0.59) H Eosinophils # (Auto) 0.35 K/uL (0-0.5) Basophils # (Auto) 0.04 K/uL (0-0.2) Micro Results Date/Time Source Procedure Growth Status 04/10/17 20:23 Urine , Clean Catch Urine Culture - Final Enterococcus Faecalis Complete Risk Factors for Resistance * History of recurrent UTIs * Antimicrobial use within the last 90 days - patient on amoxicillin PO x 10 days in March 2017 Assessment & Plan Assessment 82 year old male admitted with anemia and symptomatic UTI. Patient was initiated on ceftriaxone IV therapy. This was changed to Vancomycin IV on 04/12 due to preliminary urine culture growing Enterococcus. * h/o of E.faecalis UTI (sensitive to amp, vanc, macrobid, dapto) Plan Vancomycin IV for treatment of Enterococcus UTI Vancomycin IV * Loading dose: 2700 mg (21 mg/kg) * Patient has multiple RF for accumulation of Vancomycin (age, BMI, h/o CKD IV) , therefore, I am hesitant to start patient on a maintenance dose utilizing population based pharmacokinetics. Further dosing will be based on random level. * Goal trough level for UTI :~15 mcg/mL * Random level ordered for 04/13/17 Pharmacy will continue to follow and will adjust dose/frequency as necessary. Thank you.
[2017-04-12 21:05] LABS: HEMATOCRIT 27.6 % (42-52)
[2017-04-12] MEDS: INSULIN GLARGINE SOLOSTAR 100 UNITS/ML 3 ML PEN SC SCH (21:16)
[2017-04-13] MEDS: LEVOTHYROXINE 150 MCG TAB PO SCH (05:58)
[2017-04-13] MEDS: LEVOTHYROXINE 100 MCG TAB PO SCH (05:58)
[2017-04-13 07:13] LABS: HEMATOCRIT 26.7 % (42-52)
[2017-04-13 07:21] VITALS: BP 133/74; PULSE 67; TEMP 36.5; O2SAT 98
[2017-04-13] MEDS: MISOPROSTOL 200 MCG TAB PO SCH ×3 (07:41→21:14)
[2017-04-13] MEDS: FERROUS SULFATE 325 MG TAB PO SCH ×2 (07:41→21:14)
[2017-04-13] MEDS: GABAPENTIN 300 MG CAP PO SCH ×4 (07:41→21:15)
[2017-04-13] MEDS: FUROSEMIDE 40 MG TAB PO SCH (07:41)
[2017-04-13] MEDS: POLYETHYLENE (MIRALAX) 17 GM PACK PO SCH (07:42)
[2017-04-13] MEDS: OXYCODONE HCL 20 MG TABCR (OXYCONTIN) PO SCH ×2 (07:46→21:15)
[2017-04-13 07:50] LABS: CREATININE 2.2 mg/dl (0.60-1.40)
[2017-04-13 08:00] VITALS: O2SAT 98
[2017-04-13] MEDS: PANTOprazole INJ 40 MG in SYRINGE 0 ML IV SCH ×2 (08:30→21:14)
[2017-04-13] MEDS: INSULIN ASPART 100 UNITS/ML 3 ML PEN SC SCH ×4 (08:38→21:39)
[2017-04-13] MEDS ORDERED: LEVOFLOXACIN 750 MG TAB PO SCH (09:30)
[2017-04-13] MEDS ORDERED: VANCOMYCIN INJ 1,750 MG in SODIUM CHLORIDE 0.9% 500ML 500 ML IV ONE (10:00)
--- NOTE | 2017-04-13 11:11 | Gastroenterology Progress Note ---
Progress Note Date of Service: Apr 13, 2017 Subjective Pt evaluation today including: conversation w/ patient, conversation w/ family The patient reports having no new problems overnight. He denies having any bright red blood per rectum or dark sticky stool. The patient does have some questions with regards to his persistent anemia. Review of Systems Constitutional: + fatigue, No fever, No weight loss Respiratory: + sputum Cardiac: + claudication, No chest pain, No PND, No palpitations Abdomen: + see HPI, No nausea, No vomiting, No constipation Medications Current Inpatient Medications Medications (Trade) Dose Ordered Sig/Hany Route Start Time Stop Time Status Last Admin Dose Admin Acetaminophen (Tylenol Tab) 650 mg Q4H PRN PO 04/10/17 19:00 05/10/17 18:59 Ondansetron HCl (Zofran Inj) 4 mg Q6H PRN IV 04/10/17 19:00 05/10/17 18:59 Pantoprazole Sodium 40 mg/ Syringe 10 ml @ 5 mls/min DAILY@, IV 04/10/17 21:00 05/10/17 20:59 04/13/17 08:30 5 MLS/MIN Docusate Sodium (coLACE CAP) 100 mg BID PRN PO 04/10/17 20:00 05/10/17 19:59 Furosemide (Lasix Tab) 40 mg QAM PO 04/11/17 09:00 05/11/17 08:59 04/13/17 07:41 40 MG Gabapentin (Neurontin Cap) 300 mg QID PO 04/10/17 21:00 05/10/17 20:59 04/13/17 07:41 300 MG Insulin Glargine (Lantus Solostar Pen) 20 unit HS SC 04/10/17 21:00 05/10/17 20:59 04/12/17 21:16 20 UNIT Levothyroxine Sodium (Synthroid Tab) 150 mcg DAILYBB PO 04/11/17 06:00 05/11/17 05:59 04/13/17 05:58 150 MCG Levothyroxine Sodium (Synthroid Tab) 100 mcg DAILYBB PO 04/11/17 06:00 05/11/17 05:59 04/13/17 05:58 100 MCG Misoprostol (Cytotec Tab) 200 mcg TID PO 04/10/17 21:00 05/10/17 20:59 04/13/17 07:41 200 MCG Oxycodone HCl (Oxycontin Tab) 20 mg BID PO 04/10/17 21:00 04/24/17 20:59 04/13/17 07:46 20 MG Oxycodone HCl (Roxicodone Immediate Rel Tab) 5 mg Q6H PRN PO 04/10/17 19:00 04/24/17 18:59 04/11/17 03:57 5 MG Polyethylene (Miralax Powder Packet) 34 gm DAILY PO 04/11/17 09:00 05/11/17 08:59 04/13/17 07:42 34 GM Cholecalciferol (Vitamin D Tab) 4,000 inter.unit QDL PO 04/11/17 11:30 05/11/17 11:29 04/12/17 11:28 4,000 INTER.UNIT Ferrous Sulfate (Feosol Tab) 325 mg BID PO 04/10/17 21:00 05/10/17 20:59 04/13/17 07:41 325 MG Miscellaneous Information (Order Awaiting Action) 1 ea QS N/A 04/11/17 00:00 05/11/17 00:00 04/11/17 00:16 1 EA Insulin Aspart (novoLOG ASPART) SLIDING SCALE If C... ACHS SC 04/10/17 21:00 05/10/17 20:59 04/13/17 08:38 3 UNITS Glucose (Glucose 40% Gel) 15-30 GRAMS 15 GRAMS... UD PRN PO 04/10/17 19:15 05/10/17 19:14 Glucose (Glucose Chew Tab) 4-8 Tablets 4 Tabl... UD PRN PO 04/10/17 19:15 05/10/17 19:14 Dextrose (Dextrose 50% 50ML Syringe) 25-50ML OF 50% DW IV FOR... UD PRN IV 04/10/17 19:15 05/10/17 19:14 Glucagon (Glucagon Inj) 1 mg UD PRN SQ 04/10/17 19:15 05/10/17 19:14 Levofloxacin (Levaquin Tab) 750 mg Q2D@1100 PO 04/13/17 09:30 04/18/17 09:29 04/13/17 09:56 750 MG Objective Vital Signs Date Time Temp Pulse Resp B/P (MAP) Pulse Ox O2 Delivery O2 Flow Rate FiO2 04/13/17 08:00 98 Room Air 04/13/17 07:21 36.5 67 20 133/74 (93) 98 04/13/17 00:00 Room Air 04/12/17 23:10 36.6 76 18 106/67 (80) 95 Room Air 04/12/17 16:00 95 Room Air 04/12/17 15:38 36.3 63 18 126/82 (97) 96 Room Air Physical Exam General Appearance: no apparent distress Eyes: PERRL Neck: no adenopathy, no JVD Respiratory/Chest: lungs clear Cardiovascular: no murmur Abdomen: soft Neurologic/Psych: oriented x 3 Skin: no jaundice Laboratory Results Last 24 Hours Test 04/12/17 16:36 04/12/17 20:15 04/12/17 20:45 04/13/17 06:50 Bedside Glucose 98 mg/dl 101 mg/dl Hemoglobin 8.5 g/dL 8.0 g/dL Hematocrit 27.6 % 26.7 % Creatinine 2.20 mg/dl Est Creatinine Clear Calc Drug Dose 34.5 ml/min Estimated GFR () 31.6 Estimated GFR (Non- 27.3 Random Vancomycin Level 12.9 mcg/ml Test 04/13/17 07:24 Bedside Glucose 118 mg/dl Assessment and Plan 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 He does have persistent heme positive stools which is likely reflection of his portal gastropathy. Perhaps the patient should be treated as an outpatient with intravenous iron. I would defer this to the patient's regular GI provider, his laborer livestock and lead die molder.
[2017-04-13] MEDS: CHOLECALCIFEROL 1000 INTER.UNIT TAB PO SCH (12:18)
--- NOTE | 2017-04-13 13:08 | Progress Note ---
Internal Med Progress Note Date of Service: Apr 13, 2017. Provider Documentation: SUBJECTIVE: Seen and examined at bedside. Denies black/bloody stools. Burning micturition is improving. Denies chest pain, SOB, Abd pain. Offers no new complaints. OBJECTIVE: Vital Signs-as noted below Physical Exam: Vitals signs as noted above General Appearance:Moderately built and nourished, no apparent distress Head: normocephalic, Atraumatic Eyes: normal inspection, EOMI, PERRL Neck: supple, Trachea midline Respiratory/Chest: Normal breath sounds, CTA Cardiovascular: S1, S2, No murmur Abdomen/GI:Soft, Non tender, Bowel sounds present, protuberant Extremities/Musculoskelatal:normal inspection, Trace edema Neurologic/Psych:AAOX3, grossly no focal neurological deficits Skin: normal color, warm Lab data as noted below. 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 UTI: Reports burning micturition H/O recurrent UTIs Urine Culture:Enterococcus Will change to Levaquin based on sensitivities DM II Last A1c 4.7 on 03/01/17 Continue Lantus at reduced dose Novolog sliding scale coverage BSG AC HS CKD IV Cr Stable: baseline 2.1-2.4 Monitor renal function Avoid nephrotoxins MCHUGH CIRRHOSIS Appears euvolemic, no overt decompensation continue home Lasix dose HYPERTENSION stable Monitor HYPOTHYROIDISM Continue levothyroxine MGUS Continue outpatient follow up APOILNAR Continue CPAP Morbid Obesity: BMI:44.4 DVT PX SCD's CODE STATUS Full code DISPOSITION Follows with Dr. Freitas for primary care Follows with GI Vital Signs: Date Time Temp Pulse Resp B/P (MAP) Pulse Ox O2 Delivery O2 Flow Rate FiO2 04/13/17 08:00 98 Room Air 04/13/17 07:21 36.5 67 20 133/74 (93) 98 04/13/17 00:00 Room Air 04/12/17 23:10 36.6 76 18 106/67 (80) 95 Room Air 04/12/17 16:00 95 Room Air 04/12/17 15:38 36.3 63 18 126/82 (97) 96 Room Air Lab Results: Results Past 24 Hours Test 04/12/17 16:36 04/12/17 20:15 04/12/17 20:45 04/13/17 06:50 Range/Units Bedside Glucose 98 101 70-99 mg/dl Hemoglobin 8.5 8.0 14.0-18.0 g/dL Hematocrit 27.6 26.7 42-52 % Creatinine 2.20 0.60-1.40 mg/dl Est Creatinine Clear Calc Drug Dose 34.5 ml/min Estimated GFR () 31.6 Estimated GFR (Non- 27.3 Random Vancomycin Level 12.9 mcg/ml Test 04/13/17 07:24 04/13/17 11:07 Range/Units Bedside Glucose 118 106 70-99 mg/dl
[2017-04-13 14:33] VITALS: BP 131/84; PULSE 71; TEMP 36.8; O2SAT 95
[2017-04-13] MEDS: INSULIN GLARGINE SOLOSTAR 100 UNITS/ML 3 ML PEN SC SCH (21:39)
[2017-04-13 23:40] VITALS: BP 95/65; PULSE 113; TEMP 36.9; O2SAT 96
[2017-04-14] MEDS: OXYCODONE HCL IR 5 MG TAB (IMMEDIATE RELEASE) PO PRN (01:53)
[2017-04-14 05:51] LABS: HEMATOCRIT 25.9 % (42-52)
[2017-04-14 06:16] LABS: CREATININE 2.5 mg/dl (0.60-1.40)
[2017-04-14] MEDS: LEVOTHYROXINE 100 MCG TAB PO SCH (06:37)
[2017-04-14] MEDS: LEVOTHYROXINE 150 MCG TAB PO SCH (06:37)
[2017-04-14 07:21] VITALS: BP 110/71; PULSE 59; TEMP 36.6; O2SAT 97
[2017-04-14] MEDS: INSULIN ASPART 100 UNITS/ML 3 ML PEN SC SCH ×2 (07:38→12:41)
[2017-04-14 08:00] VITALS: O2SAT 97
--- NOTE | 2017-04-14 09:25 | DIAGNOSTIC IMAGING REPORT ---
ULTRASOUND VENOUS DOPPLER LWR EXT BILA CLINICAL HISTORY: Leg swelling COMPARISON STUDY: No previous studies for comparison. FINDINGS: Real-time and color flow Doppler imaging were performed. Flow was seen within the femoral, popliteal and calf veins with no intraluminal thrombus demonstrated. The saphenous vein is patent. There is a left popliteal cyst measuring 6 x 1.3 x 2.6 cm. IMPRESSION: No evidence of lower extremity DVT. Electronically signed by: Daniel Garcia M.D. 04/14/2017 9:23 AM Dictated Date/Time: 04/14/2017 9:23 AM
[2017-04-14] MEDS: POLYETHYLENE (MIRALAX) 17 GM PACK PO SCH (09:58)
[2017-04-14] MEDS: FERROUS SULFATE 325 MG TAB PO SCH (09:58)
[2017-04-14] MEDS: PANTOprazole INJ 40 MG in SYRINGE 0 ML IV SCH (09:58)
[2017-04-14] MEDS: GABAPENTIN 300 MG CAP PO SCH ×2 (09:58→12:39)
[2017-04-14] MEDS: FUROSEMIDE 40 MG TAB PO SCH (09:58)
[2017-04-14] MEDS: MISOPROSTOL 200 MCG TAB PO SCH (09:58)
[2017-04-14] MEDS: OXYCODONE HCL 20 MG TABCR (OXYCONTIN) PO SCH (10:05)
--- NOTE | 2017-04-14 11:52 | Progress Note ---
Internal Med Progress Note Date of Service: Apr 14, 2017. Provider Documentation: SUBJECTIVE: Seen and examined at bedside. Feels well. Denies any blood in stools. Also denies chest pain, SOB, Abd pain. Family at bedside. OBJECTIVE: Vital Signs-as noted below Physical Exam: Vitals signs as noted above General Appearance:Moderately built and nourished, no apparent distress Head: normocephalic, Atraumatic Eyes: normal inspection, EOMI, PERRL Neck: supple, Trachea midline Respiratory/Chest: Normal breath sounds, CTA Cardiovascular: S1, S2, No murmur Abdomen/GI:Soft, Non tender, Bowel sounds present, protuberant Extremities/Musculoskelatal:normal inspection, Trace edema Neurologic/Psych:AAOX3, grossly no focal neurological deficits Skin: normal color, warm Lab data as noted below. 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 Presented with Hb 6.6 S/P 2 units PRBCs Hb:7.9 today Continue IV Protonix BID, PO misoprostol Will switch to PO Protonix Transfuse PRN Monitor Hb GI following Currently no active bleeding Avoid NSAIDs No plan for EGD/Colonoscopy UTI: Reports burning micturition H/O recurrent UTIs Urine Culture:Enterococcus Continue Levaquin DM II Last A1c 4.7 on 03/01/17 Continue Lantus at reduced dose Novolog sliding scale coverage BSG AC HS CKD IV Cr Stable: baseline 2.1-2.4 Monitor renal function Avoid nephrotoxins Cr levels stable MCHUGH CIRRHOSIS Appears euvolemic, no overt decompensation continue home Lasix dose HYPERTENSION stable Monitor HYPOTHYROIDISM Continue levothyroxine MGUS Continue outpatient follow up APOLINAR Continue CPAP Morbid Obesity: BMI:44.4 DVT PX SCD's CODE STATUS Full code DISPOSITION Follow up with Dr. Freitas for primary care in 1 week as advised ('s office will call with the appointment) Follows with your configuration management administrator in 2 weeks as advised Complete the antibiotic course as prescribed. (Start taking levaquin from tomorrow:04/15/17) Seek immediate medical attention if your you notice blood in stools again Get Blood test as recommended and follow up with Vital Signs: Date Time Temp Pulse Resp B/P (MAP) Pulse Ox O2 Delivery O2 Flow Rate FiO2 04/14/17 11:57 36.6 59 20 97 Room Air 04/14/17 08:00 97 Room Air 04/14/17 07:21 36.6 59 20 110/71 (84) 97 04/14/17 00:00 Room Air 04/13/17 23:40 36.9 113 20 95/65 (75) 96 Room Air 04/13/17 16:00 Room Air 04/13/17 14:33 36.8 71 20 131/84 (100) 95 Lab Results: Results Past 24 Hours Test 04/13/17 16:07 04/13/17 20:02 04/14/17 05:10 04/14/17 07:24 Range/Units Bedside Glucose 92 105 114 70-99 mg/dl Hemoglobin 7.9 14.0-18.0 g/dL Hematocrit 25.9 42-52 % Creatinine 2.50 0.60-1.40 mg/dl Est Creatinine Clear Calc Drug Dose 30.4 ml/min Estimated GFR () 27.1 Estimated GFR (Non- 23.4 Test 04/14/17 10:59 Range/Units Bedside Glucose 97 70-99 mg/dl
[2017-04-14 11:57] VITALS: BP 110/71; PULSE 59; TEMP 36.6; O2SAT 97
[2017-04-14] MEDS: CHOLECALCIFEROL 1000 INTER.UNIT TAB PO SCH (12:12)
[2017-04-14] MEDS ORDERED: LVQ750 PO (12:14)
--- NOTE | 2017-04-14 12:16 | Discharge Summary ---
Discharge Summary Date of Service Apr 14, 2017. Discharge Summary Admission Date: Apr 10, 2017 at 18:08 Discharge Date: Apr 14, 2017 Discharge Disposition: Home Principal Diagnosis: Gastrointestinal Bleeding Procedures: CXR: 1. No acute cardiopulmonary findings. 2. Slight increase in moderate elevation of the right hemidiaphragm. 3. Bibasilar opacities suggestive of atelectasis. Venous Doppler: No evidence of lower extremity DVT. Consultations: GI Pending Studies/Follow-Up: Follow up with Dr. Freitas for primary care in 1 week as advised ('s office will call with the appointment) Follows with your insurance adviser in 2 weeks as advised Complete the antibiotic course as prescribed. (Start taking levaquin from tomorrow:04/15/17) Seek immediate medical attention if your you notice blood in stools again Get Blood test as recommended and follow up with Medication Reconciliation New Medications: Levofloxacin (Levofloxacin) 750 Mg Tab 750 MG PO Q2D@1100 for 6 Days, #3 TAB Start taking from 04/15/17 Continued Medications: Cholecalciferol (D 2000) 2,000 Unit Tab 4000 UNITS PO @LUNCH Docusate Sodium (Docusate Sodium) 100 Mg Cap 100 MG PO BID PRN for Constipation, CAP Ferrous Sulfate (Ferrous Sulfate) 325 Mg Tab 325 MG PO BID Furosemide (Furosemide) 40 Mg Tab 40 MG PO QAM Gabapentin (Neurontin) 300 Mg Cap 300 MG PO QID, CAP Insulin Glargine (Lantus) 100 Unit/Ml Inj 40 UNITS SC HS, VIAL Insulin Lispro (Human) (Humalog) 100 Unit/Ml Inj 10 UNITS SQ TID Levothyroxine Sodium (Synthroid) 100 Mcg Tab 100 MCG PO QAM, 5 Refills Levothyroxine Sodium (Levothyroxine Sodium) 150 Mcg Tab 150 MCG PO QAM, 5 Refills Misoprostol (Cytotec) 200 Mcg Tab 200 MCG PO TID Oxycodone Hcl (Oxycontin) 20 Mg Tab 20 MG PO BID, TAB Oxycodone Ir (Roxicodone Ir) 5 Mg Tab 5 MG PO Q6H PRN for Pain, TAB Pantoprazole (Protonix) 40 Mg Tab 40 MG PO BID Polyethylene (Miralax) 17 Gm Pow 34 GM PO DAILY Triamcinolone (Triamcinolone Acetonide) 60 Appln/60 Ml Lotn 1 APPLN EXT BID PRN for Itching Admission Information HPI (per Admitting provider): This is an 82 y/o male with PMH of MCHUGH cirrhosis, PUD, gastric varices, GAVE, colonic AVMs, DM 2, HTN, AAA, CKD stage IV, hypothyroidism, and other problems listed below who presents to the ED with fatigue. Patient has been hospitalized multiple times (Oct 2015 and Nov 2015) for anemia due to GIB requiring transfusions. Last EGD 08/07/[address] 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 Patient now reports 6 weeks of progressive fatigue, generalized weakness, lightheadedness with standing, dyspnea on exertion. ER labs show pt's Hg has dropped to 6.6 from 9.7 in late February 2017. ER provider's rectal exam showed brown heme positive stool. Patient denies noting any hematochezia or melena at home. Bilat LE edema slightly increased from baseline past 1 week. Denies fevers, chills, cough, dyspnea at rest, chest pain, abdominal pain, nausea, vomiting, diarrhea, constipation, urinary symptoms. Physical Exam (per Admitting): General Appearance: WD/WN, + pertinent finding (pleasant alert elderly male , and daughter at bedside) Head: normocephalic, atraumatic Eyes: normal inspection, PERRL, sclerae normal ENT: pharynx normal, + pertinent finding (hard of hearing) Neck: supple, trachea midline Respiratory/Chest: lungs clear, normal breath sounds, no respiratory distress, no accessory muscle use Cardiovascular: regular rate, rhythm, no murmur Abdomen/GI: normal bowel sounds, non tender, soft Extremities/Musculoskelatal: no calf tenderness, + pertinent finding (trace pretibial edema bilat LE) Neurologic/Psych: alert, normal mood/affect, oriented x 3, + pertinent finding (grossly nonfocal) Skin: warm/dry, + pallor Hospital Course SYMPTOMATIC ANEMIA 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 Presented with Hb 6.6 S/P 2 units PRBCs Hb:7.9 today Continue IV Protonix BID, PO misoprostol Will switch to PO Protonix Transfuse PRN Monitor Hb GI following Currently no active bleeding Avoid NSAIDs No plan for EGD/Colonoscopy UTI: Reports burning micturition H/O recurrent UTIs Urine Culture:Enterococcus Continue Levaquin DM II Last A1c 4.7 on 03/01/17 Continue Lantus at reduced dose Novolog sliding scale coverage BSG AC HS CKD IV Cr Stable: baseline 2.1-2.4 Monitor renal function Avoid nephrotoxins Cr levels stable MCHUGH CIRRHOSIS Appears euvolemic, no overt decompensation continue home Lasix dose HYPERTENSION stable Monitor HYPOTHYROIDISM Continue levothyroxine MGUS Continue outpatient follow up APOLINAR Continue CPAP Morbid Obesity: BMI:44.4 DVT PX SCD's CODE STATUS Full code DISPOSITION Follow up with Dr. Freitas for primary care in 1 week as advised ('s office will call with the appointment) Follows with your insurance adviser in 2 weeks as advised Complete the antibiotic course as prescribed. (Start taking levaquin from tomorrow:04/15/17) Seek immediate medical attention if your you notice blood in stools again Get Blood test as recommended and follow up with Total time spent on discharge = 40 minutes This includes examination of the patient, discharge planning, medication reconciliation, and communication with other providers. Discharge Instructions Discharge Instructions Date of Service Apr 14, 2017. Admission Reason for Admission: Anemia Gib (Gastrointestinal Bleeding) Discharge Discharge Diagnosis / Problem: Gastrointestinal Bleeding Discharge Goals Goal(s): Decrease discomfort, Improve function Activity Recommendations Activity Limitations: resume your previous activity Exercise/Sports Limitations: as tolerated . Instructions / Follow-Up Instructions / Follow-Up Follow up with Dr. Freitas for primary care in 1 week as advised ('s office will call with the appointment) Follows with your insurance adviser in 2 weeks as advised Complete the antibiotic course as prescribed. (Start taking levaquin from tomorrow:04/15/17) Seek immediate medical attention if your you notice blood in stools again Get Blood test as recommended and follow up with Current Hospital Diet Patient's current hospital diet: Diabetes Type 2 Diet, Low Fiber Diet Discharge Diet Recommended Diet: Diabetes Type 2 Diet, Low Fiber Diet Pending Studies Studies pending at discharge: no Medical Emergencies . Who to Call and When: Medical Emergencies: If at any time you feel your situation is an emergency, please call 911 immediately. . Non-Emergent Contact Non-Emergency issues call your: Primary Care Provider, Branch Logistics Supervisor Call Non-Emergent contact if: you have a fever, your pain is not controlled, your pain is worsening, your pain is unusual for you, you have any medication questions If you notice blood in stools . . "Provider Documentation" section prepared by Ulisses Kerr. . VTE Core Measure Inpt VTE Proph given/why not?: SCD's
== END 2017-04-14 13:09 | disposition home or self-care (01) | DRG 299 ==
LOC: C.EDB 16:35 → C.2T 18:08 → ENRESERV 18:29 → EDBEDREQSVC 04-12 09:55 → ENRESERV 04-12 10:01 → C.MS2W 04-12 10:36
PROVIDERS: ADMIT Internal Medicine; ATTEND Internal Medicine
DX: Q27.33 Arteriovenous malformation of digestive system vessel (principal); K31.811 Angiodysplasia of stomach and duodenum with bleeding; N39.0 Urinary tract infection, site not specified; N18.4 Chronic kidney disease, stage 4 (severe); D69.3 Immune thrombocytopenic purpura; Z68.41 Body mass index [BMI] 40.0-44.9, adult; K92.2 Gastrointestinal hemorrhage, unspecified; D50.0 Iron deficiency anemia secondary to blood loss (chronic); B95.2 Enterococcus as the cause of diseases classified elsewhere; K74.60 Unspecified cirrhosis of liver; E66.01 Morbid (severe) obesity due to excess calories; K75.81 Nonalcoholic steatohepatitis (NASH); E11.22 Type 2 diabetes mellitus with diabetic chronic kidney disease; G47.33 Obstructive sleep apnea (adult) (pediatric); M35.3 Polymyalgia rheumatica; D47.2 Monoclonal gammopathy; E03.9 Hypothyroidism, unspecified; E78.5 Hyperlipidemia, unspecified; Z79.899 Other long term (current) drug therapy; Z79.4 Long term (current) use of insulin

== ENCOUNTER 2017-08-21 09:37 | Inpatient (IN) | payer OTHER, BC ==
[~2017-08-21] VITALS: Ht 172.7 cm; Wt 135.1 kg
[2017-08-21] VITALS (18 sets, daily range): BP systolic 110–166; BP diastolic 72–93; PULSE 58–89; TEMP 36.4–37.2; O2SAT 91–100; Ht 172.7 cm; Wt 135.1 kg
[~2017-08-21 09:37] MED LIST changes: -CHOL100010 PO; +CHOL1TAB76 PO; +FERR325T PO; -FERR325T51 PO; -HMLI SC; +INSU100I SQ; +MRLP17X PO; +OXYC1TAB3 PO; +OXYC20TA50 PO; -OXYSR/10 PO; -POLY335019 PO; -PROP10TA7 PO; -SPIR25TA PO; +TRML160 EXT
[2017-08-21] MEDS ORDERED: SODIUM CHLORIDE 0.9% 1000ML 1,000 ML IV STA (10:02)
[2017-08-21] MEDS ORDERED: FURO80TA63 PO (10:25)
[2017-08-21] MEDS ORDERED: METR1TAB4 PO (10:25)
[2017-08-21 10:34] LABS: PROTHROMBIN TIME (PATIENT) 11.1 SECONDS (9.0-12.0)
[2017-08-21 10:42] LABS: ALT/SGPT 9 U/L (12-78); BLOOD UREA NITROGEN 32 mg/dl (7-18); BUN/CREATININE RATIO 14.5 (10-20); CALCIUM 7.7 mg/dl (8.5-10.1); CARBON DIOXIDE 31 mmol/L (21-32); CHLORIDE 106 mmol/L (98-107); CREATININE 2.22 mg/dl (0.60-1.40); GLUCOSE 127 mg/dl (70-99); POTASSIUM 3.7 mmol/L (3.5-5.1); SODIUM 141 mmol/L (136-145)
[2017-08-21 10:43] LABS: HEMATOCRIT 21.8 % (42-52); MEAN CELL VOLUME 89.7 fL (80-100); MEAN CORPUSCULAR HEMOGLOBIN 26.3 pg (25-34); MEAN CORPUSCULAR HGB CONC 29.4 g/dl (32-36); MEAN PLATELET VOLUME 11.4 fL (7.4-10.4); PLATELET COUNT 150 K/uL (130-400); RED BLOOD COUNT 2.43 M/uL (4.7-6.1); WHITE BLOOD COUNT 4.45 K/uL (4.8-10.8)
[2017-08-21 10:47] LABS: ALKALINE PHOSPHATASE 66 U/L (45-117); AST/SGOT 20 U/L (15-37)
[2017-08-21 10:49] LABS: BASO % 0.9 %; BASO ABS # 0.04 K/uL (0-0.2); COMPLETE YES; EOS % 5.8 %; GIANT PLATELETS 1+; HYPOCHROMIA PRESENT; IG% 0.2 %; LYMPH % 14.6 %; LYMPH ABS # 0.65 K/uL (1.2-3.4); MONO % 12.1 %; NEUT % 66.4 %; TEAR DROP CELLS OCCASIONAL
--- NOTE | 2017-08-21 11:06 | DIAGNOSTIC IMAGING REPORT ---
CHEST ONE VIEW PORTABLE HISTORY: 82 years-old Male EVALUATE GI BLEED acute gastrointestinal hemorrhage COMPARISON: Chest radiograph 04/10/2017 TECHNIQUE: Portable upright AP view of the chest FINDINGS: Cardiac silhouette is mildly enlarged, unchanged. Right hemidiaphragmatic elevation redemonstrated. There is atherosclerosis of the aorta. No pneumothorax or pleural effusion. Linear subsegmental bibasilar opacities suggest atelectasis or scarring. No lobar airspace consolidation. No overt pulmonary edema. Bones of the chest appear grossly intact. Degenerative changes are noted throughout the shoulders and spine. IMPRESSION: 1. Cardiomegaly without acute cardiopulmonary process. 2. Unchanged linear subsegmental bibasilar opacities suggest atelectasis or scarring. The above report was generated using voice recognition software. It may contain grammatical, syntax or spelling errors. Electronically signed by: Eddie Vargas M.D. 08/21/2017 11:04 AM Dictated Date/Time: 08/21/2017 11:03 AM
[2017-08-21] MEDS ORDERED: PANTOprazole INJ 80 MG in DEXTROSE 5% 100ML IV SCH (11:30)
[2017-08-21] MEDS ORDERED: PANTOprazole INJ 40 MG in DEXTROSE 5% 100ML IV SCH (11:45)
[2017-08-21] MEDS ORDERED: DEXTROSE 50% 50 ML SYR IV PRN (12:45)
[2017-08-21] MEDS ORDERED: GLUCAGON FOR INJ 1 MG VIAL SQ PRN (12:45)
[2017-08-21] MEDS ORDERED: GLUCOSE 10 TABS/TUBE PO PRN (12:45)
[2017-08-21] MEDS ORDERED: GLUCOSE 40% GEL 15 GM TUBE PO PRN (12:45)
--- NOTE | 2017-08-21 13:17 | Gastrointestinal Consultation ---
Gastrointestinal Consultation Date of Consultation: Aug 21, 2017 Attending Physician: Dr. Velasquez Consulting Physician: Dr. Garnett Reason for Consultation: Anemia, occult postitive stool History of Present Illness Patient is a 82 year old male with a hx of NAFLD cirrhosis with gastric varices , AVMs, GAVE, Portal Hypertensive Gastropathy, gastric ulcer (2016), obesity, DM , MGUS, CKD, chronic iron deficiency anemia, who presented to the ED this morning. He was directed by his PCP to report to the ED for anemia. He and his tell me that he was told that his Hb was 6.2 yesterday. He tells us that he has been weak, lightheaded, SOB with walking but that he had these symptoms for months and has "good and bad days," but hasn't been particularly worse recently. He received 2 units of blood in April, 2 in June ( [facility]TE Bryan), 2 units in Aug 03 here and is receiving a unit now. He is passing 1-2 formed BMs/day that are black but he takes 2 po iron supplements/day. He has not had an change in the consistency of his stools. No mikaela rectal bleeding. No nausea, vomiting or abdominal pain. His most recent EGD 08/07/[address] Bateman: There was fullness of the GE junction, although no clear esophageal varices were seen. Gastric varices were seen on retroflexion. There was marked GAVE in the antrum, with deformity and edema of the folds in the gastric antrum, and marked petechiae of the antral mucosa. His most recent Colonoscopy was 10/13/[address] Bateman with multiple AVMs in the ascending colon, two large ones and one small was ablated and clipped. No evidence of ongoing or active bleeding. Past Medical/Surgical History Medical Problems: (1) Acute renal failure Status: Acute (2) GI bleed Status: Acute (3) GI bleed Status: Acute (4) Peptic ulcer disease Status: Acute (5) Rectal bleeding Status: Acute Past Medical History: 1. Gastric ulcer 2. Cirrhosis with GAVE, gastric varices 3. Polymyalgia rheumatica 4. HTN 5. Hyperlipidemia 6. CKD 7. AAA Past Surgical History: 1. EGD, colonoscopy - see HPI. 2. Hip replacement 3. Tonsillectomy 4. Appendectomy Family History Patient reports no known family medical history. Social History Smoking Status: Never Smoker Alcohol Use: none Drug Use: none Marital Status: Housing Status: lives with family Occupation Status: retired Allergies Coded Allergies: Vancomycin (Verified Allergy, Intermediate, HIVES, 08/21/17) Iodinated Diagnostic Agents (Verified Adverse Reaction, Intermediate, Decreased renal function, 08/21/17) Current Medications Home Meds and Scripts Medications Dose Route/Sig Max Daily Dose Days Date Category Flagyl (Metronidazole) 250 Mg Tab 250 Mg PO BID 08/21/17 Reported Lasix (Furosemide) 80 Mg Tab 80 Mg PO BID 08/21/17 Reported Triamcinolone Acetonide (Triamcinolone) 60 Appln/60 Ml Lotn 1 Appln EXT BID PRN 04/10/17 Reported Miralax (Polyethylene) 17 Gm Pow 34 Gm PO DAILY 04/10/17 Reported Roxicodone Ir (Oxycodone HCl) 5 Mg Tab 5 Mg PO Q6H PRN 04/10/17 Reported Humalog (Insulin Lispro (Human)) 100 Unit/Ml Inj 10 Units SQ TID 04/10/17 Reported Oxycontin (Oxycodone Hcl) 20 Mg Tab 20 Mg PO BID 04/10/17 Reported Ferrous Sulfate 325 Mg Tab 325 Mg PO BID 04/10/17 Reported Lantus (Insulin Glargine) 100 Unit/Ml Inj 40 Units SC HS 04/10/17 Reported D 2000 (Cholecalciferol) 2,000 Unit Tab 4,000 Units PO @LUNCH 04/10/17 Reported Cytotec (Misoprostol) 200 Mcg Tab 200 Mcg PO TID 02/29/16 Reported Neurontin (Gabapentin) 300 Mg Cap 300 Mg PO QID 01/05/16 Reported Protonix (Pantoprazole Sodium) 40 Mg Tab 40 Mg PO BID 01/05/16 Reported Docusate Sodium 100 Mg Cap 100 Mg PO BID PRN 01/05/16 Reported Levothyroxine Sodium 150 Mcg Tab 150 Mcg PO QAM 10/12/15 Reported Synthroid (Levothyroxine Sodium) 100 Mcg Tab 100 Mcg PO QAM 10/12/15 Reported Review of Systems Constitutional: No fever, No chills, No sweats, No weight loss, No weakness Eyes: No eye pain, No redness ENT: No sore throat, No trouble swallowing, No pain on swallowing Respiratory: No cough, No wheezing, No shortness of breath, No dyspnea on exertion Cardiac: No chest pain, No edema, No palpitations Abdomen: + see HPI, + problem reported (black stools, but on po iron supplements), No pain, No nausea, No vomiting, No diarrhea, No constipation Neuro: No memory loss, No weakness, No numbness/tingling, No vertigo, No balance problems Psych: No depression symptoms, No anxiety, No insomnia Heme: No abnormal bleeding/bruising, No night sweats Endo: No excessive thirst, No excessive urination Skin: No rash, No itch, No new/changing skin lesions, No jaundice Physical Exam Date Time Temp Pulse Resp B/P (MAP) Pulse Ox O2 Delivery O2 Flow Rate FiO2 08/21/17 12:33 58 08/21/17 12:30 36.8 60 16 149/87 99 08/21/17 12:15 37.2 61 16 142/80 96 08/21/17 12:00 37.1 65 16 161/91 96 08/21/17 11:46 36.7 63 16 155/84 99 08/21/17 11:00 66 136/75 98 Room Air 08/21/17 10:20 74 08/21/17 09:42 36.9 95 18 123/85 97 Room Air General Appearance: no apparent distress, + obese Eyes: normal inspection, EOMI Neck: supple, no adenopathy, thyroid normal Respiratory/Chest: chest non-tender, lungs clear, normal breath sounds, no accessory muscle use Cardiovascular: regular rate, rhythm, no JVD, no murmur Abdomen: normal bowel sounds, non tender, soft, no organomegaly, + pertinent finding (obese, no obvious ascites) Extremities: normal inspection, normal capillary refill, + pedal edema, + swelling (lower leg, 1-2 +, non pitting edema) Neurologic/Psych: alert, normal mood/affect, oriented x 3 Skin: normal color, no jaundice, warm/dry, no rash Laboratory Results Last 24 Hours Test 08/21/17 10:05 White Blood Count 4.45 K/uL Red Blood Count 2.43 M/uL Hemoglobin 6.4 g/dL Hematocrit 21.8 % Mean Corpuscular Volume 89.7 fL Mean Corpuscular Hemoglobin 26.3 pg Mean Corpuscular Hemoglobin Concent 29.4 g/dl Platelet Count 150 K/uL Mean Platelet Volume 11.4 fL Neutrophils (%) (Auto) 66.4 % Lymphocytes (%) (Auto) 14.6 % Monocytes (%) (Auto) 12.1 % Eosinophils (%) (Auto) 5.8 % Basophils (%) (Auto) 0.9 % Neutrophils # (Auto) 2.95 K/uL Lymphocytes # (Auto) 0.65 K/uL Monocytes # (Auto) 0.54 K/uL Eosinophils # (Auto) 0.26 K/uL Basophils # (Auto) 0.04 K/uL RDW Standard Deviation 52.1 fL RDW Coefficient of Variation 15.9 % Immature Granulocyte % (Auto) 0.2 % Immature Granulocyte # (Auto) 0.01 K/uL Giant Platelets 1+ Hypochromasia PRESENT Tear Drop Cells OCCASIONAL Prothrombin Time 11.1 SECONDS Prothromb Time International Ratio 1.0 Activated Partial Thromboplast Time 25.2 SECONDS Partial Thromboplastin Ratio 1.0 Sodium Level 141 mmol/L Potassium Level 3.7 mmol/L Chloride Level 106 mmol/L Carbon Dioxide Level 31 mmol/L Anion Gap 5.0 mmol/L Blood Urea Nitrogen 32 mg/dl Creatinine 2.22 mg/dl Est Creatinine Clear Calc Drug Dose 34.9 ml/min Estimated GFR () 31.3 Estimated GFR (Non- 27.0 BUN/Creatinine Ratio 14.5 Random Glucose 127 mg/dl Calcium Level 7.7 mg/dl Total Bilirubin 0.3 mg/dl Direct Bilirubin < 0.1 mg/dl Aspartate Amino Transf (AST/SGOT) 20 U/L Alanine Aminotransferase (ALT/SGPT) 9 U/L Alkaline Phosphatase 66 U/L Troponin I < 0.015 ng/ml Total Protein 6.3 gm/dl Albumin 2.6 gm/dl Lipase 94 U/L Impression Patient is a 82 year old male with chronic iron deficiency anemia, likely with chronic slow GI blood loss from GAVE. Also considered is an esophageal variceal bleed (though no previous hx of esophageal varices). Plan 1. Octreotide drip. 2. Rocephin IV (evidence of improved outcomes on pts with variceal bleeding). 3. Protonix drip. 4. Blood transfusion to <9.0. Higher Hb levels increase the pressure in the varices and increase the risk for bleeding. 5. Full liquid diet today. 6. Monitor overnight and will consider EGD tomorrow, though pt has a preference not to undergo endoscopy as he tells me that Dr. Bateman who has managed him in the OP setting has told him that EGD "would not help. I have seen , examined and agree with the plan as outlined by PRACHI Beal as above. -no overt gi bleeding, has symptomatic anemia -May be from GAVE vs concerning possibility would be gastric varices -He would not like to undergo EGD, but stated we would await till he has had blood, continue treatment, and then re-eval in the am. "
--- NOTE | 2017-08-21 13:42 | EMERGENCY ROOM VISIT NOTE ---
History Report prepared by Omar: Christianne Jacinto Under the Supervision of: Jaskaran DasilvaO. First contact with patient: 09:47 Chief Complaint: ABNORMAL LABS Stated Complaint: ABNORMAL LABS History of Present Illness The patient is a 82 year old male who presents to the Emergency Room with complaints of abnormal labs. 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 He has a history of GI bleed. He has had multiple transfusion in the past. His last transfusion was in July and previous to that was in June. 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 He received a call late last night telling him to come to the ED for further evaluation because his hemoglobin was 6. He is currently feeling weak and tired. Pt denies headache, change in vision , fevers, chest pain, shortness of breath, nausea, vomiting, diarrhea, pain with urination, melena, and hematochezia. Source of History: patient Onset: [employer] Position: other (global) Symptom Intensity: hemoglobin 6 Timing: constant Associated Symptoms: + fatigue, + weakness, No fevers, No headache, No chest pain, No SOB, No nausea, No vomiting, No melena, No hematochezia, No diarrhea, No urinary symptoms Review of Systems See HPI for pertinent positives & negatives. A total of 10 systems reviewed and were otherwise negative. Past Medical & Surgical Medical Problems: (1) Anemia (2) Cirrhosis of liver not due to alcohol (3) CKD (chronic kidney disease), stage IV (4) Diabetes mellitus (5) Dyslipidemia (6) GIB (gastrointestinal bleeding) (7) HTN (hypertension) (8) Hypothyroidism (9) ITP (idiopathic thrombocytopenic purpura) (10) MGUS (monoclonal gammopathy of unknown significance) (11) APOLINAR on CPAP (12) PMR (polymyalgia rheumatica) (13) Polymyalgia rheumatica (14) Respiratory distress (15) SOB (shortness of breath) Surgical Problems: (1) History of appendectomy (2) History of tonsillectomy and adenoidectomy (3) History of total right hip replacement Family History Patient reports no known family medical history. Social History Smoking Status: Never Smoker Alcohol Use: none Drug Use: none Marital Status: Housing Status: lives with family Occupation Status: retired Current/Historical Medications Scheduled Cholecalciferol (D 1999), 4,000 UNITS PO @LUNCH Ferrous Sulfate (Ferrous Sulfate), 325 MG PO BID Furosemide (Lasix), 80 MG PO BID Gabapentin (Neurontin), 300 MG PO QID Insulin Glargine (Lantus), 40 UNITS SC HS Insulin Lispro (Human) (Humalog), 10 UNITS SQ TID Levothyroxine Sodium (Synthroid), 100 MCG PO QAM Levothyroxine Sodium (Levothyroxine Sodium), 150 MCG PO QAM Metronidazole (Flagyl), 250 MG PO BID Misoprostol (Cytotec), 200 MCG PO TID Oxycodone Hcl (Oxycontin), 20 MG PO BID Pantoprazole (Protonix), 40 MG PO BID Polyethylene (Miralax), 34 GM PO DAILY Scheduled PRN Docusate Sodium (Docusate Sodium), 100 MG PO BID PRN for Constipation Oxycodone Ir (Roxicodone Ir), 5 MG PO Q6H PRN for Pain Triamcinolone (Triamcinolone Acetonide), 1 APPLN EXT BID PRN for Itching Allergies Coded Allergies: Iodinated Diagnostic Agents (Verified Adverse Reaction, Intermediate, Decreased renal function, 08/21/17) Physical Exam Vital Signs Date Time Temp Pulse Resp B/P (MAP) Pulse Ox O2 Delivery O2 Flow Rate FiO2 08/21/17 13:15 36.6 61 18 165/87 99 08/21/17 12:45 36.6 59 16 149/93 99 08/21/17 12:33 58 08/21/17 12:30 36.8 60 16 149/87 99 08/21/17 12:15 37.2 61 16 142/80 96 08/21/17 12:00 37.1 65 16 161/91 96 08/21/17 11:46 36.7 63 16 155/84 99 08/21/17 11:30 99 Room Air 08/21/17 11:00 66 136/75 98 Room Air 08/21/17 10:20 74 08/21/17 09:42 36.9 95 18 123/85 97 Room Air Physical Exam GENERAL: alert, sitting up in bed, well appearing, well nourished, no distress, non-toxic EYE EXAM: normal conjunctiva OROPHARYNX: no exudate, no erythema, lips, buccal mucosa, and tongue normal and mucous membranes are moist NECK: supple, no nuchal rigidity, no adenopathy, non-tender LUNGS: Clear to auscultation. Normal chest wall mechanics HEART: systolic ejection murmur, S1 normal and S2 normal ABDOMEN: abdomen soft, non-tender, normo-active bowel sounds, no masses, no rebound or guarding. BACK: Back is symmetrical on inspection and there is no deformity, no midline tenderness, no CVA tenderness. RECTAL: Dark, tarry stool, heme positive. SKIN: no rashes and no bruising UPPER EXTREMITIES: upper extremities are grossly normal. LOWER EXTREMITIES: No pitting edema. NEURO EXAM: Normal sensorium, cranial nerves II-XII grossly intact, normal speech, no gross weakness of arms, no gross weakness of legs. Medical Decision & Procedures ER Provider Diagnostic Interpretation: Radiology results as stated below per my review and the radiologist's interpretation: CHEST ONE VIEW PORTABLE HISTORY: 82 years-old Male EVALUATE GI BLEED acute gastrointestinal hemorrhage COMPARISON: Chest radiograph 04/10/2017 TECHNIQUE: Portable upright AP view of the chest FINDINGS: Cardiac silhouette is mildly enlarged, unchanged. Right hemidiaphragmatic elevation redemonstrated. There is atherosclerosis of the aorta. No pneumothorax or pleural effusion. Linear subsegmental bibasilar opacities suggest atelectasis or scarring. No lobar airspace consolidation. No overt pulmonary edema. Bones of the chest appear grossly intact. Degenerative changes are noted throughout the shoulders and spine. IMPRESSION: 1. Cardiomegaly without acute cardiopulmonary process. 2. Unchanged linear subsegmental bibasilar opacities suggest atelectasis or scarring. The above report was generated using voice recognition software. It may contain grammatical, syntax or spelling errors. Electronically signed by: Eddie Vargas M.D. 08/21/2017 11:04 AM Dictated Date/Time: 08/21/2017 11:03 AM Laboratory Results 08/21/17 10:05 Red Blood Count 2.43, Mean Corpuscular Volume 89.7, Mean Corpuscular Hemoglobin 26.3, Mean Corpuscular Hemoglobin Concent 29.4, Mean Platelet Volume 11.4, Neutrophils (%) (Auto) 66.4, Lymphocytes (%) (Auto) 14.6, Monocytes (%) (Auto) 12.1, Eosinophils (%) (Auto) 5.8, Basophils (%) (Auto) 0.9, Neutrophils # (Auto ) 2.95, Lymphocytes # (Auto) 0.65, Monocytes # (Auto) 0.54, Eosinophils # (Auto ) 0.26, Basophils # (Auto) 0.04 08/21/17 10:05 Test 08/21/17 10:05 White Blood Count 4.45 K/uL (4.8-10.8) Red Blood Count 2.43 M/uL (4.7-6.1) Hemoglobin 6.4 g/dL (14.0-18.0) Hematocrit 21.8 % (42-52) Mean Corpuscular Volume 89.7 fL (80-100) Mean Corpuscular Hemoglobin 26.3 pg (25-34) Mean Corpuscular Hemoglobin Concent 29.4 g/dl (32-36) Platelet Count 150 K/uL (130-400) Mean Platelet Volume 11.4 fL (7.4-10.4) Neutrophils (%) (Auto) 66.4 % Lymphocytes (%) (Auto) 14.6 % Monocytes (%) (Auto) 12.1 % Eosinophils (%) (Auto) 5.8 % Basophils (%) (Auto) 0.9 % Neutrophils # (Auto) 2.95 K/uL (1.4-6.5) Lymphocytes # (Auto) 0.65 K/uL (1.2-3.4) Monocytes # (Auto) 0.54 K/uL (0.11-0.59) Eosinophils # (Auto) 0.26 K/uL (0-0.5) Basophils # (Auto) 0.04 K/uL (0-0.2) RDW Standard Deviation 52.1 fL (36.4-46.3) RDW Coefficient of Variation 15.9 % (11.5-14.5) Immature Granulocyte % (Auto) 0.2 % Immature Granulocyte # (Auto) 0.01 K/uL (0.00-0.02) Giant Platelets 1+ Hypochromasia PRESENT Tear Drop Cells OCCASIONAL Prothrombin Time 11.1 SECONDS (9.0-12.0) Prothromb Time International Ratio 1.0 (0.9-1.1) Activated Partial Thromboplast Time 25.2 SECONDS (21.0-31.0) Partial Thromboplastin Ratio 1.0 Anion Gap 5.0 mmol/L (3-11) Est Creatinine Clear Calc Drug Dose 34.9 ml/min Estimated GFR () 31.3 Estimated GFR (Non- 27.0 BUN/Creatinine Ratio 14.5 (10-20) Calcium Level 7.7 mg/dl (8.5-10.1) Total Bilirubin 0.3 mg/dl (0.2-1) Direct Bilirubin < 0.1 mg/dl (0-0.2) Aspartate Amino Transf (AST/SGOT) 20 U/L (15-37) Alanine Aminotransferase (ALT/SGPT) 9 U/L (12-78) Alkaline Phosphatase 66 U/L (45-117) Troponin I < 0.015 ng/ml (0-0.045) Total Protein 6.3 gm/dl (6.4-8.2) Albumin 2.6 gm/dl (3.4-5.0) Lipase 94 U/L (73-393) Laboratory results per my review. Medications Administered Medications (Trade) Dose Ordered Sig/Hany Route Start Time Stop Time Status Last Admin Dose Admin Sodium Chloride 1,000 ml @ 999 mls/hr Q1H1M STAT IV 08/21/17 10:02 08/21/17 11:02 DC 08/21/17 10:02 999 MLS/HR Pantoprazole Sodium (Protonix IV Bolus/Drip) 1 ea NOW STAT IV 08/21/17 11:21 08/21/17 11:22 DC 08/21/17 12:39 1 EA Pantoprazole Sodium 80 mg/ Dextrose 120 ml @ 480 mls/hr TODAY@1130 IV 08/21/17 11:30 08/21/17 11:44 DC 08/21/17 12:02 480 MLS/HR Pantoprazole Sodium 40 mg/ Dextrose 100 ml @ 20 mls/hr Q5H IV 08/21/17 11:45 08/21/17 16:44 08/21/17 12:24 20 MLS/HR ECG Indication: weakness Rate (beats per minute): 71 Rhythm: normal sinus Findings: 1st degree AV block, Q waves (Inferior), other (normal axis) ED Course ED COURSE: Vital signs were reviewed and showed normal vitals The patients medical record was reviewed The above diagnostic studies were performed and reviewed. ED treatments and interventions as stated above. 0947: The patient was evaluated in room B2. A complete history and physical examination was performed. 1002: NSS 1000 ml @ 999 mls/hr IV 1121: Upon reevaluation, the patient is resting comfortably. I discussed my findings with the patient and he understands and agrees with the treatment plan. I obtained consent for blood. Based on the patients age, coexisting illnesses, exam and lab findings the decision to treat as an inpatient was made. The patient remained stable while under my care. The patient will be evaluated for further management. 1121: Protonix IV Bolus/Drip 1229: I reviewed the patient's case with Dr. Velasquez. [facility] will evaluate the patient for further management. Medical Decision Differential diagnosis includes etiologies such as diverticulosis, AVM, coagulopathy, colitis, inflammatory bowel disease, malignancy, Viola-Alas tear, esophagitis, peptic ulcer disease, variceal bleed, gastritis, epistaxis, fissure, hemorrhoids, as well as others were entertained. Patient is an 82-year-old male with a past medical history of cirrhosis secondary to Beckett that presents to ER referred in for low hemoglobin. Hemoglobin was 6.4. Rectal shows melena and heme-positive. Creatinine was 2.2. No blood thinners. Patient has absolutely no abdominal pain. He does complain of diffuse weakness insistent with symptomatically anemia. He was typed and crossed. He is given 2 units of PRBCs. He was admitted to internal medicine with GI bleed and symptomatically anemia. Medication Reconcilliation Current Medication List: was personally reviewed by me Blood Pressure Screening Patient's blood pressure: Normal blood pressure Consults Time Called: 1200 Consulting Physician: Dr. Velasquez Returned Call: 1229 I reviewed the patient's case with Dr. Velasquez. [facility] will evaluate the patient for further management. Impression Primary Impression: GI bleed Additional Impressions: Symptomatic anemia Cirrhosis of liver not due to alcohol Critical Care I have personally spent 35 minutes of critical care time in the direct management of this patient. This includes bedside care, interpretation of diagnostic studies, and testing, discussion with consultants, patient, and family members, and other required patient management activities. This 35 minutes is in excess of all separately billable procedures. Scribe Attestation The scribe's documentation has been prepared under my direction and personally reviewed by me in its entirety. I confirm that the note above accurately reflects all work, treatment, procedures, and medical decision making performed by me. Departure Information Dispostion Being Evaluated By Hospitalist Referrals Niesha Frederick M.D. (PCP) Patient Instructions My [facility] Problem Qualifiers Primary Impression: GI bleed GI bleed type/associated pathology: unspecified gastrointestinal hemorrhage type Qualified Codes: K92.2 - Gastrointestinal hemorrhage, unspecified
[2017-08-21] MEDS ORDERED: ONDANSETRON INJ 2 MG/ML 2 ML VIAL IV PRN (14:00)
[2017-08-21] MEDS ORDERED: OCTREOTIDE IV BOLUS & DRIP IV STA (14:09)
[2017-08-21] MEDS ORDERED: OCTREOTIDE ACETATE INJ 100 MCG in SYRINGE 9 ML IV SCH (14:40)
[2017-08-21] MEDS ORDERED: CEFTRIAXONE SOD INJ 2,000 MG in DEXTROSE 5% 50ML 50 ML IV SCH (15:00)
[2017-08-21] MEDS: OCTREOTIDE ACETATE INJ 500 MCG in DEXTROSE 5% 100ML 100 ML IV SCH (15:35)
[2017-08-21 15:52] LABS: URINE APPEARANCE CLEAR (CLEAR); URINE BILIRUBIN NEG (NEG); URINE COLOR YELLOW; URINE EPITHELIAL CELL AUTO 20-30 /lpf (0-5); URINE NITRITE NEG (NEG); URINE SPECIFIC GRAVITY 1.021 (1.000-1.030); UROBILINOGEN NEG (NEG); ZZUR CULT IF INDIC CLEAN CATCH NO
[2017-08-21 15:53] LABS: MANUAL MICROSCOPIC REQUIRED? NO; REVIEW REQ? NO
--- NOTE | 2017-08-21 15:56 | History and Physical ---
History & Physical Date & Time of Service: Aug 21, 2017 at 15:56 Chief Complaint: Anemia, Gib Primary Care Physician: Buddy Freitas M.D. History of Present Illness Source: patient Patient is a 82 year old male with a hx of NAFLD gastric varices, AVMs, GAVE, Portal Hypertensive Gastropathy, gastric ulcer CKD Stage 3 , chronic iron deficiency anemia, presented to ED with profound anemia pt has been experiencing increased weakness, fatigue , GARRETT with minimum activity has hx of chronic anemia required intermittent PBC tx in past Had blood work done in office : hb was found to be 6.2 , pt is directed to come to ER by his family physician pt mentions of having dark stool but he takes 2 po iron supplements/day. no bright red blood per rectum no nausea , vomiting or abdominal pain in the ER hb was 6.4 , pt;s vital remains stable ordered for 2 units of PRBC to be transfused Past Medical/Surgical History Medical Problems: (1) Cirrhosis of liver not due to alcohol Status: Chronic (2) CKD (chronic kidney disease), stage IV Status: Chronic (3) Diabetes mellitus Status: Chronic (4) Dyslipidemia Status: Chronic (5) HTN (hypertension) Status: Chronic (6) Hypothyroidism Status: Chronic (7) ITP (idiopathic thrombocytopenic purpura) Status: Chronic (8) MGUS (monoclonal gammopathy of unknown significance) Status: Chronic (9) APOLINAR on CPAP Status: Chronic (10) PMR (polymyalgia rheumatica) Status: Chronic (11) Polymyalgia rheumatica Status: Chronic Surgical Problems: (1) History of appendectomy Status: Chronic (2) History of tonsillectomy and adenoidectomy Status: Chronic (3) History of total right hip replacement Status: Chronic Family History Patient reports no known family medical history. Social History Smoking Status: Never Smoker Drug Use: none Marital Status: Housing status: lives with significant other Occupational Status: retired Immunizations History of Influenza Vaccine: Yes Influenza Vaccine Date: Oct 06, 2015 History of Tetanus Vaccine?: Yes Tetanus Immunization Date: Jun 21, 2006 History of Pneumococcal: Yes Pneumococcal Date: Oct 06, 2015 History of Hepatitis B Vaccine: Unknown Multi-Drug Resistant Organisms History of MDRO: No Allergies Coded Allergies: Vancomycin (Verified Allergy, Intermediate, HIVES, 08/21/17) Iodinated Diagnostic Agents (Verified Adverse Reaction, Intermediate, Decreased renal function, 08/21/17) Home Medications Scheduled Cholecalciferol (D 1999), 4,000 UNITS PO @LUNCH Ferrous Sulfate (Ferrous Sulfate), 325 MG PO BID Furosemide (Lasix), 80 MG PO BID Gabapentin (Neurontin), 300 MG PO QID Insulin Glargine (Lantus), 40 UNITS SC HS Insulin Lispro (Human) (Humalog), 10 UNITS SQ TID Levothyroxine Sodium (Synthroid), 100 MCG PO QAM Levothyroxine Sodium (Levothyroxine Sodium), 150 MCG PO QAM Metronidazole (Flagyl), 250 MG PO BID Misoprostol (Cytotec), 200 MCG PO TID Oxycodone Hcl (Oxycontin), 20 MG PO BID Pantoprazole (Protonix), 40 MG PO BID Polyethylene (Miralax), 34 GM PO DAILY Scheduled PRN Docusate Sodium (Docusate Sodium), 100 MG PO BID PRN for Constipation Oxycodone Ir (Roxicodone Ir), 5 MG PO Q6H PRN for Pain Triamcinolone (Triamcinolone Acetonide), 1 APPLN EXT BID PRN for Itching Review of Systems Constitutional: + weakness, + fatigue ENT: No hearing loss, No unusual epistaxis, No nasal symptoms, No sore throat, No tinnitus, No dental problems, No trouble swallowing, No problem reported Respiratory: + shortness of breath, + dyspnea on exertion Cardiovascular: No chest pain, No orthopnea, No PND, No edema, No claudication , No palpitations, No problem reported Abdomen: + GI bleeding (dark stool ) Musculoskeletal: No joint pain, No muscle pain, No swelling, No calf pain, No problem reported Genitourinary - Male: No hematuria, No dysuria, No urinary frequency, No urinary urgency, No urinary hesitancy, No urinary retention, No urinary incontinence, No penile discharge, No lesions, No impotence, No problem reported Neurologic: + weakness, + vertigo Endocrine: + fatigue Physical Exam Vital Signs Date Time Temp Pulse Resp B/P (MAP) Pulse Ox O2 Delivery O2 Flow Rate FiO2 08/21/17 14:15 36.8 61 18 166/72 96 08/21/17 13:40 60 16 163/93 99 Room Air 08/21/17 13:15 36.6 61 18 165/87 99 08/21/17 12:45 36.6 59 16 149/93 99 08/21/17 12:33 58 08/21/17 12:30 36.8 60 16 149/87 99 08/21/17 12:15 37.2 61 16 142/80 96 08/21/17 12:00 37.1 65 16 161/91 96 08/21/17 11:46 36.7 63 16 155/84 99 08/21/17 11:30 99 Room Air 08/21/17 11:00 66 136/75 98 Room Air 08/21/17 10:20 74 08/21/17 09:42 36.9 95 18 123/85 97 Room Air General Appearance: no apparent distress Head: normocephalic, atraumatic Eyes: normal inspection, PERRL, EOMI, sclerae normal ENT: hearing grossly normal Neck: supple, no adenopathy, thyroid normal, no JVD, no carotid bruits, trachea midline Respiratory/Chest: chest non-tender, lungs clear, normal breath sounds, no respiratory distress, no accessory muscle use Cardiovascular: no gallop, no JVD Abdomen/GI: normal bowel sounds, non tender, soft Extremities/Musculoskelatal: normal inspection, no calf tenderness, normal capillary refill, no pedal edema, normal range of motion Neurologic/Psych: no motor/sensory deficits, alert, normal mood/affect, oriented x 3 Skin: normal color, warm/dry, no rash Diagnostics Laboratory Results Results Past 24 Hours Test 08/21/17 10:05 08/21/17 15:16 Range/Units White Blood Count 4.45 4.8-10.8 K/uL Red Blood Count 2.43 4.7-6.1 M/uL Hemoglobin 6.4 14.0-18.0 g/dL Hematocrit 21.8 42-52 % Mean Corpuscular Volume 89.7 80-100 fL Mean Corpuscular Hemoglobin 26.3 25-34 pg Mean Corpuscular Hemoglobin Concent 29.4 32-36 g/dl Platelet Count 150 130-400 K/uL Mean Platelet Volume 11.4 7.4-10.4 fL Neutrophils (%) (Auto) 66.4 % Lymphocytes (%) (Auto) 14.6 % Monocytes (%) (Auto) 12.1 % Eosinophils (%) (Auto) 5.8 % Basophils (%) (Auto) 0.9 % Neutrophils # (Auto) 2.95 1.4-6.5 K/uL Lymphocytes # (Auto) 0.65 1.2-3.4 K/uL Monocytes # (Auto) 0.54 0.11-0.59 K/uL Eosinophils # (Auto) 0.26 0-0.5 K/uL Basophils # (Auto) 0.04 0-0.2 K/uL RDW Standard Deviation 52.1 36.4-46.3 fL RDW Coefficient of Variation 15.9 11.5-14.5 % Immature Granulocyte % (Auto) 0.2 % Immature Granulocyte # (Auto) 0.01 0.00-0.02 K/uL Giant Platelets 1+ Hypochromasia PRESENT Tear Drop Cells OCCASIONAL Prothrombin Time 11.1 9.0-12.0 SECONDS Prothromb Time International Ratio 1.0 0.9-1.1 Activated Partial Thromboplast Time 25.2 21.0-31.0 SECONDS Partial Thromboplastin Ratio 1.0 Sodium Level 141 136-145 mmol/L Potassium Level 3.7 3.5-5.1 mmol/L Chloride Level 106 98-107 mmol/L Carbon Dioxide Level 31 21-32 mmol/L Anion Gap 5.0 3-11 mmol/L Blood Urea Nitrogen 32 7-18 mg/dl Creatinine 2.22 0.60-1.40 mg/dl Est Creatinine Clear Calc Drug Dose 34.9 ml/min Estimated GFR () 31.3 Estimated GFR (Non- 27.0 BUN/Creatinine Ratio 14.5 10-20 Random Glucose 127 70-99 mg/dl Calcium Level 7.7 8.5-10.1 mg/dl Total Bilirubin 0.3 0.2-1 mg/dl Direct Bilirubin < 0.1 0-0.2 mg/dl Aspartate Amino Transf (AST/SGOT) 20 15-37 U/L Alanine Aminotransferase (ALT/SGPT) 9 12-78 U/L Alkaline Phosphatase 66 45-117 U/L Troponin I < 0.015 0-0.045 ng/ml Total Protein 6.3 6.4-8.2 gm/dl Albumin 2.6 3.4-5.0 gm/dl Lipase 94 73-393 U/L Urine Color YELLOW Urine Appearance CLEAR CLEAR Urine pH 5.0 4.5-7.5 Urine Specific [place] 1.021 1.000-1.030 Urine Protein NEG NEG Urine Glucose (UA) NEG NEG Urine Ketones NEG NEG Urine Occult Blood TRACE NEG Urine Nitrite NEG NEG Urine Bilirubin NEG NEG Urine Urobilinogen NEG NEG Urine Leukocyte Esterase SMALL NEG Urine WBC (Auto) 5-10 0-5 /hpf Urine RBC (Auto) 0-4 0-4 /hpf Urine Hyaline Casts (Auto) 1-5 0-5 /lpf Urine Epithelial Cells (Auto) 20-30 0-5 /lpf Urine Bacteria (Auto) NEG NEG Diagnostic Radiology CHEST XRAY IMPRESSION: 1. Cardiomegaly without acute cardiopulmonary process. 2. Unchanged linear subsegmental bibasilar opacities suggest atelectasis or scarring. Impression Assessment and Plan SEVER SYMPTOMATIC ANEMIA : with symptom of weakness , fatigue , dizzy spell , lightheadedness hb 6.4 ordered for 2 units of PRBC to be transfused follow H&H Q 8hrs tx of hb < 7 POSSIBLE GI BLEED presents with low hb ( requiting intermittent PRBC tx ) , dark stool recent EGD 08/07/[address] Bateman: There was fullness of the GE junction, although no clear esophageal varices were seen. Gastric varices were seen on retroflexion. There was marked GAVE in the antrum, with deformity and edema of the folds in the gastric antrum, and marked petechiae of the antral mucosa. recent Colonoscopy was 10/13/[address] Bateman with multiple AVMs in the ascending colon, two large ones and one small was ablated and clipped. No evidence of ongoing or active bleeding. ordered for NPO IV PPI Gtt PRBC tx to correct anemia GI eval requested , appreciate input plan for EGD in AM CKD STAGE 3 : Cr 2 ( approx baseline ) follow PRP HX OF MCHUGH CIRRHOSIS LFT wnl ; no evidence of hepatic decompensation GI following FULL CODE DVT PROPHYLAXIS : scd and teds avoid anticoagulation for anemia /concern for GI bleed DISPOSITION ; discharge home when medically stable Advanced Directives Existing Living Will: Yes Existing Power of Telegraph Dispatcher: Yes Resuscitation Status FULL RESUSCITATION VTE Prophylaxis VTE Risk Assessment Done? Y/N: Yes Risk Level: Moderate Given or contraindicated: T.E.D. Stockings, SCD's
[2017-08-21] MEDS: PANTOprazole INJ 40 MG in DEXTROSE 5% 100ML IV SCH ×2 (17:35→22:18)
[2017-08-21] MEDS: INSULIN ASPART 100 UNITS/ML 3 ML PEN SC SCH ×2 (17:36→21:23)
[2017-08-21 19:48] LABS: HEMATOCRIT 23.8 % (42-52)
[2017-08-21] MEDS ORDERED: INSULIN GLARGINE SOLOSTAR 100 UNITS/ML 3 ML PEN SC SCH (21:00)
[2017-08-21 21:30] LABS: HEMATOCRIT 23.4 % (42-52)
[2017-08-21] MEDS ORDERED: ACETAMINOPHEN 325 MG TAB PO STA (22:53)
[2017-08-22] VITALS (9 sets, daily range): BP systolic 112–138; BP diastolic 68–85; PULSE 54–73; TEMP 36.3–36.7; O2SAT 89–99
[2017-08-22] MEDS: OCTREOTIDE ACETATE INJ 500 MCG in DEXTROSE 5% 100ML 100 ML IV SCH (00:44)
[2017-08-22] MEDS: PANTOprazole INJ 40 MG in DEXTROSE 5% 100ML IV SCH (04:16)
[2017-08-22 06:37] LABS: MEAN CELL VOLUME 88.4 fL (80-100); MEAN CORPUSCULAR HEMOGLOBIN 27.2 pg (25-34); MEAN CORPUSCULAR HGB CONC 30.8 g/dl (32-36); MEAN PLATELET VOLUME 11.3 fL (7.4-10.4); PLATELET COUNT 143 K/uL (130-400); RED BLOOD COUNT 2.94 M/uL (4.7-6.1); WHITE BLOOD COUNT 3.67 K/uL (4.8-10.8)
[2017-08-22 07:11] LABS: BUN/CREATININE RATIO 13.7 (10-20); CALCIUM 7.5 mg/dl (8.5-10.1); CREATININE 2.05 mg/dl (0.60-1.40)
[2017-08-22] MEDS: INSULIN ASPART 100 UNITS/ML 3 ML PEN SC SCH ×2 (07:39→11:40)
[2017-08-22 08:40] LABS: ESTIMATED AVERAGE GLUCOSE 88 mg/dl; HA1C FLAG Normal (Normal)
[2017-08-22] MEDS ORDERED: GABAPENTIN 300 MG CAP PO ONE (08:45)
[2017-08-22] MEDS ORDERED: FUROSEMIDE INJ 80 MG in SYRINGE 0 ML IV SCH (09:00)
[2017-08-22] MEDS ORDERED: TRIAMCINOLONE ACET 0.1% CR 15 GM TUBE EXT PRN (10:00)
[2017-08-22] MEDS ORDERED: OXYCODONE HCL IR 5 MG TAB (IMMEDIATE RELEASE) PO PRN (10:00)
[2017-08-22] MEDS ORDERED: DOCUSATE SODIUM 100 MG CAP PO PRN (10:00)
--- NOTE | 2017-08-22 10:08 | Discharge Instructions ---
Discharge Instructions Date of Service Aug 22, 2017. Admission Reason for Admission: Anemia, Gib Discharge Discharge Diagnosis / Problem: ANEMIA /POSSIBLE GI BLEED Discharge Goals Goal(s): Improve disease control, Diagnostic testing, Therapeutic intervention Activity Recommendations Activity Limitations: resume your previous activity . Instructions / Follow-Up Instructions / Follow-Up HOSPITAL FOLLOW UP 08/28/2017 3:00 PM Buddy Freitas MD [facility], [place] HEMATOLOGY FOLLOW UP 09/18/2017 9:45 AM Ricci Nino MD Hematology/Oncology [facility] LAB WORK : COMPLETE BLOOD WORK IN A WEEK DO NOT TAKE ASPIRIN , ADVIL ,MOTRIN , ALEVE, IBUPROFEN, NAPROXEN -CAN MAKE CAUSE STOMACH ULCER /BLEEDING /DROP IN BLOOD COUNT AND WORSENING OF RENAL FUNCTION FOLLOW UP WITH GASTROENTEROLOGY DR LORENZANA IN 1-2 WEEKS , OFFICE WILL CALL WITH APPOINTMENT Current Hospital Diet Patient's current hospital diet: Low Sodium Diet (2gm Na), AHA Diet (Heart Healthy) Discharge Diet Recommended Diet: AHA Diet (Heart Healthy), Low Sodium Diet (2gm Na) Pending Studies Studies pending at discharge: yes List of pending studies: LAB WORK : COMPLETE BLOOD WORK IN 1 WEEK Laboratory Results Hemoglobin A1c Test 08/22/17 05:57 Range/Units Estimated Average Glucose 88 mg/dl Hemoglobin A1c 4.7 4.5-5.6 % Medical Emergencies . Who to Call and When: Medical Emergencies: If at any time you feel your situation is an emergency, please call 911 immediately. . Non-Emergent Contact Non-Emergency issues call your: Primary Care Provider . . "Provider Documentation" section prepared by Latha Velasquez. . VTE Core Measure Inpt VTE Proph given/why not?: Tyesha Galvez, SCD's
--- NOTE | 2017-08-22 10:59 | Progress Note ---
Internal Med Progress Note Date of Service: Aug 22, 2017. Provider Documentation: SUBJECTIVE: feels fine , no complain of abdominal pain or discomfort no bowel movement since yesterday morning vitals remains stable HB improved to ~8 Today ( got total 3 units of PRBC tx ) updated by GI , no plan for EGD today , needs out pt follow up diet advanced , tolerating well stable to be discharged home today OBJECTIVE: Vital Signs-as noted below Exam: General-no sign of discomfort Eyes-sclera no n icteric ENT-NAd Neck-no JVD , no Carotid bruit , no thyromegaly Lungs-CTA ,no wheeze or rales Heart-regular S1/S2 Abdomen-soft, non tender Extremities-no lower ext edema Neuro-AAO x3, no focal deficit Lab data as noted below. ASSESSMENT & PLAN: SEVERE SYMPTOMATIC ANEMIA : presented symptom of weakness , fatigue , dizzy spell , lightheadedness Hb 6.4 s/p 3 units of PRBC transfusion HB improved to ~8 today remains stable hemodynamically , no symptoms of dizzy spell ,improved weakness and fatigue no evidence of active bleeding per GI , no plan for EGD during this admission POSSIBLE GI BLEED presents with low hb ( requiting intermittent PRBC tx ) , dark stool appreciate in put form GI no evidence of active GI Bleed pt had multiple EGD 's done in past, reluctant to have EGD -if it is low yield , recent EGD 08/07/[address] Bateman: There was fullness of the GE junction, although no clear esophageal varices were seen. Gastric varices were seen on retroflexion. There was marked GAVE in the antrum, with deformity and edema of the folds in the gastric antrum, and marked petechiae of the antral mucosa. recent Colonoscopy was 10/13/[address] Bateman with multiple AVMs in the ascending colon, two large ones and one small was ablated and clipped. No evidence of ongoing or active bleeding. diet advanced -tolerating well plan to discharge pt home today out pt follow up with GI , repeat blood work in 1 week HX OF MUGS/ITP : follows with Heme onc Dr Nino CKD STAGE 3 : Cr 2 ( approx baseline ) follows with Nephrology Dr Frederick pt is asked to avoid NSAID's HX OF MCHUGH CIRRHOSIS LFT wnl ; no evidence of hepatic decompensation GI following FULL CODE DVT PROPHYLAXIS scd and teds pharmacological anticoagulation avoided for anemia requiring PRBC tx /concern for GI bleed DISPOSITION stable to be discharged home today Medicine follow up with Dr Fretias at [facility] out pt follow up with GI Dr Bateman Vital Signs: Date Time Temp Pulse Resp B/P (MAP) Pulse Ox O2 Delivery O2 Flow Rate FiO2 08/22/17 08:00 Room Air 08/22/17 07:45 36.3 58 16 112/68 (83) 93 Room Air 08/22/17 04:43 36.5 54 18 132/76 (94) 96 08/22/17 04:00 Room Air 08/22/17 02:47 36.5 59 20 138/71 94 08/22/17 01:45 36.6 73 18 122/73 92 08/22/17 00:44 36.5 56 16 136/85 99 08/22/17 00:15 36.5 59 16 124/76 96 08/22/17 00:10 36.4 73 18 130/82 (98) 97 Room Air 08/22/17 00:00 Room Air 08/21/17 23:50 36.4 60 20 143/81 97 08/21/17 23:43 36.6 59 16 136/82 97 08/21/17 21:26 36.5 62 20 153/89 (110) 98 Room Air 08/21/17 20:00 Room Air 08/21/17 18:14 36.9 58 16 141/88 100 08/21/17 17:37 36.6 71 16 110/73 95 08/21/17 17:15 36.7 61 18 115/75 99 08/21/17 16:48 36.7 89 16 110/73 91 08/21/17 16:37 36.7 62 16 115/75 93 08/21/17 16:00 Room Air 08/21/17 15:52 36.6 68 20 149/91 (110) 95 Room Air 08/21/17 14:15 36.8 61 18 166/72 96 08/21/17 13:40 60 16 163/93 99 Room Air 08/21/17 13:15 36.6 61 18 165/87 99 08/21/17 12:45 36.6 59 16 149/93 99 08/21/17 12:33 58 08/21/17 12:30 36.8 60 16 149/87 99 08/21/17 12:15 37.2 61 16 142/80 96 08/21/17 12:00 37.1 65 16 161/91 96 08/21/17 11:46 36.7 63 16 155/84 99 08/21/17 11:30 99 Room Air Lab Results: Results Past 24 Hours Test 08/21/17 15:16 08/21/17 16:43 08/21/17 19:28 08/21/17 20:47 Range/Units Urine Color YELLOW Urine Appearance CLEAR CLEAR Urine pH 5.0 4.5-7.5 Urine Specific [place] 1.021 1.000-1.030 Urine Protein NEG NEG Urine Glucose (UA) NEG NEG Urine Ketones NEG NEG Urine Occult Blood TRACE NEG Urine Nitrite NEG NEG Urine Bilirubin NEG NEG Urine Urobilinogen NEG NEG Urine Leukocyte Esterase SMALL NEG Urine WBC (Auto) 5-10 0-5 /hpf Urine RBC (Auto) 0-4 0-4 /hpf Urine Hyaline Casts (Auto) 1-5 0-5 /lpf Urine Epithelial Cells (Auto) 20-30 0-5 /lpf Urine Bacteria (Auto) NEG NEG Bedside Glucose 117 146 70-99 mg/dl Hemoglobin 7.2 14.0-18.0 g/dL Hematocrit 23.8 42-52 % Test 08/21/17 21:03 08/22/17 05:57 08/22/17 06:26 Range/Units Hemoglobin 7.1 8.0 14.0-18.0 g/dL Hematocrit 23.4 26.0 42-52 % White Blood Count 3.67 4.8-10.8 K/uL Red Blood Count 2.94 4.7-6.1 M/uL Mean Corpuscular Volume 88.4 80-100 fL Mean Corpuscular Hemoglobin 27.2 25-34 pg Mean Corpuscular Hemoglobin Concent 30.8 32-36 g/dl RDW Standard Deviation 51.3 36.4-46.3 fL RDW Coefficient of Variation 15.9 11.5-14.5 % Platelet Count 143 130-400 K/uL Mean Platelet Volume 11.3 7.4-10.4 fL Sodium Level 143 136-145 mmol/L Potassium Level 4.0 3.5-5.1 mmol/L Chloride Level 107 98-107 mmol/L Carbon Dioxide Level 29 21-32 mmol/L Anion Gap 7.0 3-11 mmol/L Blood Urea Nitrogen 28 7-18 mg/dl Creatinine 2.05 0.60-1.40 mg/dl Est Creatinine Clear Calc Drug Dose 38.6 ml/min Estimated GFR () 34.4 Estimated GFR (Non- 29.7 BUN/Creatinine Ratio 13.7 10-20 Random Glucose 106 70-99 mg/dl Estimated Average Glucose 88 mg/dl Hemoglobin A1c 4.7 4.5-5.6 % Calcium Level 7.5 8.5-10.1 mg/dl Bedside Glucose 115 70-99 mg/dl
--- NOTE | 2017-08-22 11:11 | Discharge Summary ---
Discharge Summary Date of Service Aug 22, 2017. Discharge Summary Admission Date: Aug 21, 2017 at 12:34 Discharge Date: Aug 22, 2017 Discharge Disposition: Home Principal Diagnosis: ANEMIA /POSSIBLE GI BLEED Consultations: [facility] GI Medication Reconciliation Continued Medications: Cholecalciferol (D 2000) 2,000 Unit Tab 4000 UNITS PO @LUNCH Docusate Sodium (Docusate Sodium) 100 Mg Cap 100 MG PO BID PRN for Constipation, CAP Ferrous Sulfate (Ferrous Sulfate) 325 Mg Tab 325 MG PO BID Furosemide (Lasix) 80 Mg Tab 80 MG PO BID, TAB Gabapentin (Neurontin) 300 Mg Cap 300 MG PO QID, CAP Insulin Glargine (Lantus) 100 Unit/Ml Inj 40 UNITS SC HS, VIAL Insulin Lispro (Human) (Humalog) 100 Unit/Ml Inj 10 UNITS SQ TID Levothyroxine Sodium (Synthroid) 100 Mcg Tab 100 MCG PO QAM, 5 Refills Levothyroxine Sodium (Levothyroxine Sodium) 150 Mcg Tab 150 MCG PO QAM, 5 Refills Metronidazole (Flagyl) 250 Mg Tab 250 MG PO BID, TAB Misoprostol (Cytotec) 200 Mcg Tab 200 MCG PO TID Oxycodone Hcl (Oxycontin) 20 Mg Tab 20 MG PO BID, TAB Oxycodone Ir (Roxicodone Ir) 5 Mg Tab 5 MG PO Q6H PRN for Pain, TAB Pantoprazole (Protonix) 40 Mg Tab 40 MG PO BID Polyethylene (Miralax) 17 Gm Pow 34 GM PO DAILY Triamcinolone (Triamcinolone Acetonide) 60 Appln/60 Ml Lotn 1 APPLN EXT BID PRN for Itching Admission Information HPI (per Admitting provider): Patient is a 82 year old male with a hx of NAFLD gastric varices, AVMs, GAVE, Portal Hypertensive Gastropathy, gastric ulcer CKD Stage 3 , chronic iron deficiency anemia, presented to ED with profound anemia pt has been experiencing increased weakness, fatigue , GARRETT with minimum activity has hx of chronic anemia required intermittent PBC tx in past Had blood work done in office : hb was found to be 6.2 , pt is directed to come to ER by his family physician pt mentions of having dark stool but he takes 2 po iron supplements/day. no bright red blood per rectum no nausea , vomiting or abdominal pain in the ER hb was 6.4 , pt;s vital remains stable ordered for 2 units of PRBC to be transfused Physical Exam (per Admitting): General Appearance: no apparent distress Head: normocephalic, atraumatic Eyes: normal inspection, PERRL, EOMI, sclerae normal ENT: hearing grossly normal Neck: supple, no adenopathy, thyroid normal, no JVD, no carotid bruits, trachea midline Respiratory/Chest: chest non-tender, lungs clear, normal breath sounds, no respiratory distress, no accessory muscle use Cardiovascular: no gallop, no JVD Abdomen/GI: normal bowel sounds, non tender, soft Extremities/Musculoskelatal: normal inspection, no calf tenderness, normal capillary refill, no pedal edema, normal range of motion Neurologic/Psych: no motor/sensory deficits, alert, normal mood/affect, oriented x 3 Skin: normal color, warm/dry, no rash Hospital Course SEVERE SYMPTOMATIC ANEMIA : presented symptom of weakness , fatigue , dizzy spell , lightheadedness Hb 6.4 s/p 3 units of PRBC transfusion HB improved to ~8 today remains stable hemodynamically , no symptoms of dizzy spell ,improved weakness and fatigue no evidence of active bleeding per GI , no plan for EGD during this admission POSSIBLE GI BLEED presents with low hb ( requiting intermittent PRBC tx ) , dark stool appreciate in put form GI no evidence of active GI Bleed pt had multiple EGD 's done in past, reluctant to have EGD -if it is low yield , recent EGD 08/07/[address] Lorenzana: There was fullness of the GE junction, although no clear esophageal varices were seen. Gastric varices were seen on retroflexion. There was marked GAVE in the antrum, with deformity and edema of the folds in the gastric antrum, and marked petechiae of the antral mucosa. recent Colonoscopy was 10/13/[address] Lorenzana with multiple AVMs in the ascending colon, two large ones and one small was ablated and clipped. No evidence of ongoing or active bleeding. diet advanced -tolerating well plan to discharge pt home today out pt follow up with GI , repeat blood work in 1 week HX OF MUGS/ITP : follows with Heme onc Dr Nino CKD STAGE 3 : Cr 2 ( approx baseline ) follows with Nephrology Dr Frederick pt is asked to avoid NSAID's HX OF MCHUGH CIRRHOSIS LFT wnl ; no evidence of hepatic decompensation GI following FULL CODE DVT PROPHYLAXIS scd and teds pharmacological anticoagulation avoided for anemia requiring PRBC tx /concern for GI bleed DISPOSITION stable to be discharged home today Medicine follow up with Dr Freitas at [facility] out pt follow up with GI Dr Lorenzana Total time spent on discharge = 35 MINS This includes examination of the patient, discharge planning, medication reconciliation, and communication with other providers. Discharge Instructions DI: Medical v4 Discharge Instructions Date of Service Aug 22, 2017. Admission Reason for Admission: Anemia, Gib Discharge Discharge Diagnosis / Problem: ANEMIA /POSSIBLE GI BLEED Discharge Goals Goal(s): Improve disease control, Diagnostic testing, Therapeutic intervention Activity Recommendations Activity Limitations: resume your previous activity . Instructions / Follow-Up Instructions / Follow-Up HOSPITAL FOLLOW UP 08/28/2017 3:00 PM Buddy Freitas MD [facility], [place] HEMATOLOGY FOLLOW UP 09/18/2017 9:45 AM Ricci Nino MD Hematology/Oncology [facility] LAB WORK : COMPLETE BLOOD WORK IN A WEEK DO NOT TAKE ASPIRIN , ADVIL ,MOTRIN , ALEVE, IBUPROFEN, NAPROXEN -CAN MAKE CAUSE STOMACH ULCER /BLEEDING /DROP IN BLOOD COUNT AND WORSENING OF RENAL FUNCTION FOLLOW UP WITH GASTROENTEROLOGY DR LORENZANA IN 1-2 WEEKS , OFFICE WILL CALL WITH APPOINTMENT Current Hospital Diet Patient's current hospital diet: Low Sodium Diet (2gm Na), AHA Diet (Heart Healthy) Discharge Diet Recommended Diet: AHA Diet (Heart Healthy), Low Sodium Diet (2gm Na) Pending Studies Studies pending at discharge: yes List of pending studies: LAB WORK : COMPLETE BLOOD WORK IN 1 WEEK Laboratory Results Hemoglobin A1c Test 08/22/17 05:57 Range/Units Estimated Average Glucose 88 mg/dl Hemoglobin A1c 4.7 4.5-5.6 % Medical Emergencies . Who to Call and When: Medical Emergencies: If at any time you feel your situation is an emergency, please call 911 immediately. . Non-Emergent Contact Non-Emergency issues call your: Primary Care Provider . . "Provider Documentation" section prepared by Latha Velasquez. . VTE Core Measure Inpt VTE Proph given/why not?: JENNIFER Lopez's Additional Copies To Caryl Lorenzana M.D. Craft, Brandon M., MD
[2017-08-22] MEDS ORDERED: CHOLECALCIFEROL 1000 INTER.UNIT TAB PO SCH (11:30)
[2017-08-22] MEDS ORDERED: GABAPENTIN 300 MG CAP PO SCH (13:00)
[2017-08-22] MEDS ORDERED: MISOPROSTOL 200 MCG TAB PO SCH (14:00)
[2017-08-22] MEDS ORDERED: FUROSEMIDE 80 MG TAB PO SCH (17:00)
[2017-08-22] MEDS ORDERED: OXYCODONE HCL 20 MG TABCR (OXYCONTIN) PO SCH (21:00)
[2017-08-22] MEDS ORDERED: FERROUS SULFATE 325 MG TAB PO SCH (21:00)
[2017-08-22] MEDS ORDERED: PANTOprazole SOD 40 MG TAB PO SCH (21:00)
[2017-08-23] MEDS ORDERED: LEVOTHYROXINE 150 MCG TAB PO SCH (06:00)
[2017-08-23] MEDS ORDERED: LEVOTHYROXINE 100 MCG TAB PO SCH (06:00)
[2017-08-23] MEDS ORDERED: POLYETHYLENE (MIRALAX) 17 GM PACK PO SCH (09:00)
== END 2017-08-22 11:42 | disposition home or self-care (01) | DRG 378 ==
LOC: C.EDB 09:39 → C.2T 12:34 → ENRESERV 12:53
PROVIDERS: ADMIT Hospitalist; ATTEND Hospitalist
DX: K92.2 Gastrointestinal hemorrhage, unspecified (principal); N18.4 Chronic kidney disease, stage 4 (severe); D69.3 Immune thrombocytopenic purpura; D50.0 Iron deficiency anemia secondary to blood loss (chronic); E11.21 Type 2 diabetes mellitus with diabetic nephropathy; D47.2 Monoclonal gammopathy; Q27.33 Arteriovenous malformation of digestive system vessel; I86.4 Gastric varices; K74.60 Unspecified cirrhosis of liver; K75.81 Nonalcoholic steatohepatitis (NASH); E78.5 Hyperlipidemia, unspecified; E03.9 Hypothyroidism, unspecified; M35.3 Polymyalgia rheumatica; K31.89 Other diseases of stomach and duodenum; G47.33 Obstructive sleep apnea (adult) (pediatric); R19.5 Other fecal abnormalities; K25.9 Gastric ulcer, unspecified as acute or chronic, without hemorrhage or perforation; I10 Essential (primary) hypertension